=== PATIENT | male | born 1960 | race Caucasian/White ===

== ENCOUNTER 2023-12-15 07:56 | Inpatient (IN) | payer BC, OTHER ==
[~2023-12-15] VITALS: Ht 185.4 cm; Wt 98.6 kg
--- NOTE | 2023-12-15 08:35 | ED.PDOC ---
History of Present Illness(SKN HPI Comments This is a 62-year-old male who comes into the ED with chief complain of wounds. He has a past medical history relevant for type 2 diabetes, gout, hyperlipidemia, hypertension, spinal stenosis, alcohol abuse. Patient stated that since last week he started noticing lesions on his hands, wrists and forearms. He denies any significant itchiness, any insect bite, he stated that is the 1st time they appeared, he only stated that they are painful on any range of motion of his raised elicits pain. Denies any chills, fevers, lightheadedness, dizziness, warmness. Patient was also noted to be anxious, had tremors, stated that his last alcoholic drink was yesterday at 7:00 p.m.. Chief Complaint: Wound Check Time Seen by MD: 08:02 Primary Care Provider: ZAC History of Present Illness: Nurses Notes Allergies: Coded Allergies: NO KNOWN ALLERGIES (Unverified , 12/15/23) Mode of Arrival: Ambulatory Severity: Mild Timing: Weeks Duration: Since onset Past Medical History PAST MEDICAL HISTORY: DM, Gout, High Lipids, HTN Social History Smoker: Non-Smoker Alcohol: Heavy Drugs: Marijuana Lives In: Home Constitutional: denies: chills, diaphoresis, fatigue, fever, malaise, sweats, weakness, others EENTM: denies: blurred vision, double vision, ear bleeding, ear discharge, ear drainage, ear pain, ear ringing, eye pain, eye redness, hearing loss, mouth pain, mouth swelling, nasal discharge, nose bleeding, nose congestion, nose pain, photophobia, tearing, throat pain, throat swelling, voice changes, others Respiratory: denies: cough, hemoptysis, orthopnea, SOB at rest, shortness of breath, SOB with excertion, stridor, wheezing, others Cardiovascular: denies: chest pain, dizzy spells, diaphoresis, Dyspnea on exertion, edema, irregular heart beat, left arm pain, lightheadedness, palpitations, PND, syncope, others Gastrointestinal: denies: abdomen distended, abdominal pain, blood streaked bowels, constipated, diarrhea, dysphagia, difficulty swallowing, hematemesis, melena, nausea, poor appetite, poor fluid intake, rectal bleeding, rectal pain, vomiting, others Genitourinary: denies: burning, dysuria, flank pain, frequency, hematuria, incontinence, penile discharge, penile sore, pain, testicle pain, testicle swelling, urgency, others Neurological: reports: tremors; denies: dizziness, fainting, headache, left sided numbness, left sided weakness, numbness, paresthesia, pre-existing deficit, right sided numbness, right sided weakness, seizure, speech problems, tingling, weakness, others Musculoskeletal: denies: back pain, gout, joint pain, joint swelling, muscle pain, muscle stiffness, neck pain, others Integumetry: reports: dryness, laceration, lesions, rash, wounds; denies: bruises, change in color, change in hair/nails, lumps, others Allergic/Immunocompromised: denies: Difficulty Healing, Frequent Infections, Hives, Itching, others Hematologic/Lymphatic: denies: anemia, blood clots, easy bleeding, easy bruising, swollen glands, others Endocrine: denies: excessive hunger, excessive sweating, excessive thirst, excessive urination, flushing, intolerance to cold, intolerance to heat, unexplained weight gain, unexplained weight loss, others Psychiatric: denies: anxiety, bipolar disorder, depression, hopeless, panic disorder, schizophrenia, sleepless, suicidal, others Physical Exam General Appearance: No Apparent Distress, Normal HEENT: Normal ENT Inspection, Pharynx Normal, TMs Normal Neck: Full Range of Motion, Non-Tender, Normal, Normal Inspection Respiratory: Chest Non-Tender, Lungs Clear, No Accessory Muscle Use, No Respiratory Distress, Normal Breath Sounds Cardiovascular: No Edema, No JVD, No Murmur, No Gallop, Normal Peripheral Pulses, Regular Rate/Rhythm Breast Exam: Deferred Gastrointestinal: Distended, Hepatomegaly, Non Tender, No Pulsatile Mass, Normal Bowel Sounds, Soft Genitalia: Deferred Pelvic: Deferred Rectal: Deferred Extremities: No calf tenderness, Normal capillary refill, Normal range of motion, Non-tender, No pedal edema Neurologic: Alert, incident handler II-XII nml as Tested, No Motor Deficits, Normal Affect, Normal Mood, No Sensory Deficits Cerebellar Function: Tremor Reflexes: NOT DONE Skin: Dry, Lacerations, Rash, Warm, Wounds Lymphatic: No Adenopathy Was a procedure done? Was a procedure done?: No Differential Diagnosis (INTG) Differential Diagnosis: Abrasion, Cellulitis, Insect Envenomation, Puncture Wound Differential Diagnosis: Atopic dermatitis X-Ray, Labs, Meds, VS Vital Signs Date Time Temp Pulse Resp B/P (MAP) Pulse Ox O2 Delivery O2 Flow Rate FiO2 12/15/23 08:50 96 12 92 Room Air* 0 21 12/15/23 08:50 96 12 139/85 (103) 92 12/15/23 08:09 98.3 93 18 141/77 (98) 99 Lab Test 12/15/23 08:30 Range/Units White Blood Count 16.8 H 4.4-10.8 10^3/uL Red Blood Count 4.53 4.5-5.90 10^6/uL Hemoglobin 15.4 13.5-17.5 g/dL Hematocrit 44.6 41.0-53.0 % Mean Corpuscular Volume 98.4 80.0-100.0 fL Mean Corpuscular Hemoglobin 34.0 H 28.0-32.0 pg Mean Corpuscular Hemoglobin Concent 34.5 32.0-36.0 g/dL Red Cell Distribution Width 14.0 11.8-14.3 % Platelet Count 233 140-450 10^3/uL Mean Platelet Volume 7.1 6.9-10.8 fL Neutrophils (%) (Auto) 37.0-80.0 % Lymphocytes (%) (Auto) 10.0-50.0 % Monocytes (%) (Auto) 0.0-12.0 % Basophils (%) (Auto) 0.0-2.0 % Neutrophils # (Auto) 1.6-8.6 10 ^3/uL Lymphocytes # (Auto) 0.4-5.4 10 ^3/uL Monocytes # (Auto) 0-1.3 10 ^3/uL Differential Total Cells Counted 100.0 100 Neutrophils % (Manual) 79 37.0-80.0 Band Neutrophils % (Manual) 4 Lymphocytes % (Manual) 4 L 10.0-50.0 Monocytes % (Manual) 10 0-12 Eosinophils % (Manual) 3 0-7 Basophils % (Manual) 0 0.0-2.0 Metamyelocytes % (manual) 0 Myelocytes % (Manual) 0 Promyelocytes % (Manual) 0 Blast Cells % (Manual) 0 Reactive Lymphocytes 0 Platelet Estimate Adequate Sodium Level 131 L 136-145 mmol/L Potassium Level 3.1 L 3.5-5.1 mmol/L Chloride Level 93 L 98-107 mmol/L Carbon Dioxide Level 28 20-31 mmol/L Anion Gap 10 5-15 Blood Urea Nitrogen 18 9-23 mg/dL Creatinine 0.97 0.700-1.30 mg/dL Glomerular Filtration Rate Calc 88 >90 mL/min BUN/Creatinine Ratio 18.6 10.0-20.0 Serum Glucose 168 H 74-106 mg/dL Calcium Level 10.2 8.7-10.4 mg/dL Current Medications Medications (Trade) Dose Ordered Sig/Mayra Route Start Time Stop Time Status Last Admin Ketorolac Tromethamine (Toradol Injection) 60 mg ONCE ONCE IM 12/15/23 08:30 12/15/23 08:31 DC 12/15/23 08:57 On my initial examination, patient appeared in no distress, he was only complaining of [id number] pain on his wounds on his back, we will order CBC, BNP, UA, we will also administer Toradol IM. We will continue to reassess. On reassessment, [place] [address], bands were at four, patient has had good is fluctuating between 90s 100s, we will prescribe IV fluids, Zosyn IV, vancomycin IV, we will order blood culture, urine culture, lactic acid. We will put patient for admission given sirs, likely sepsis. Images Reviewed?: Images reviewed and evaluated by me Time of 1ST Reevaluation: 08:24 Reevaluation 1ST: Unchanged Time of 2ND Reevaluation: 10:00 Reevaluation 2ND: Unchanged Patient Education/Counseling: Diagnosis, Treatment Family Education/Counseling: No Family Present Departure 1 Departure Time of Disposition: 10:59 Impression: Primary Impression: Cellulitis Additional Impressions: UTI (urinary tract infection) Bacteremia Sepsis Type 2 diabetes mellitus Gout Essential hypertension Hyperlipidemia Alcohol withdrawal Disposition: ADMITTED INPATIENT Condition: Guarded Critical Care Note Critical Care Time?: No Stability Stability form required: No Heart Score Heart Score: Heart Score Response (Comments) Value History N/A 0 EKG N/A 0 Age N/A 0 Risk Factors N/A 0 Troponin N/A 0 Total 0 GEORGIANA GREGORY RESIDENT Dec 15, 2023 08:35
[2023-12-15 08:50] VITALS: PULSE 96; RESP 12; O2SAT 92
[2023-12-15 08:51] LABS: Hematocrit 44.6 % (41.0-53.0); Hemoglobin 15.4 g/dL (13.5-17.5); Mean Corpuscular Hgb Conc. 34.5 g/dL (32.0-36.0); Mean Corpuscular Volume 98.4 fL (80.0-100.0); Platelet Count (auto) 233 10^3/uL (140-450); Red Blood Cells 4.53 10^6/uL (4.5-5.90); White Blood Cell 16.8 10^3/uL (4.4-10.8)
[2023-12-15 08:55] LABS: Basophils % (manual) 0 (0.0-2.0); Blast Cells 0; Metamyelocytes % 0; Myelocytes % 0; Promyelocytes % 0; Reactive Lymphocytes 0
[2023-12-15 08:57] LABS: Chloride 93 mmol/L (98-107); Potassium 3.1 mmol/L (3.5-5.1); Sodium 131 mmol/L (136-145)
[2023-12-15] MEDS: KETOROLAC TROMETH 60MG/2ML VIAL IM ONE (08:57)
[2023-12-15 08:58] LABS: Anion Gap 10 (5-15); Calcium 10.2 mg/dL (8.7-10.4); Carbon Dioxide 28 mmol/L (20-31)
[2023-12-15 09:03] LABS: BUN/Creatinine Ratio 18.6 (10.0-20.0); Blood Urea Nitrogen 18 mg/dL (9-23); Glucose 168 mg/dL (74-106)
[2023-12-15] MEDS ORDERED: cefTRIAXone 1GM/50ML D5W 50 ML IV ONE (10:15)
[2023-12-15] MEDS ORDERED: VANCOMYCIN PER PHARMACY 0 MG IV SCH ×2 (10:15→13:15)
[2023-12-15 10:18] LABS: Band Neutrophils % (manual) 4; Eosinophils % (manual) 3 (0-7); Lymphocytes % (manual) 4 (10.0-50.0); Monocytes % (manual) 10 (0-12); Platelet Estimate Adequate
[2023-12-15] MEDS: SODIUM CHLORIDE 0.9% 1,000 ML IV ONE ×3 (11:17→14:37)
[2023-12-15] MEDS: POTASSIUM CHL 20 Meq TABLET PO ONE (11:17)
[2023-12-15] MEDS: PIPERACILLIN-TAZOB 3.375GM 100 ML IV ONE (11:18)
[2023-12-15 12:00] VITALS: PULSE 89; RESP 15; O2SAT 93
[2023-12-15] MEDS ORDERED: ALLO300T2 PO (13:05)
[2023-12-15] MEDS ORDERED: EMPA1TAB3 PO (13:05)
[2023-12-15] MEDS ORDERED: METF-370 PO (13:05)
[2023-12-15] MEDS: VANCOMYCIN 1GM/200ML PREMIX 200 ML IV SCH ×2 (13:05→21:13)
[2023-12-15] MEDS ORDERED: AMIT75TA62 PO (13:05)
[2023-12-15] MEDS ORDERED: SEMA7TAB2 PO (13:05)
[2023-12-15] MEDS ORDERED: DEXTROSE (50%) 50ML SYRG IV PRN (13:15)
[2023-12-15] MEDS ORDERED: ACETAMINOPHEN 325 MG TAB PO PRN (13:30)
[2023-12-15] MEDS ORDERED: DOCUSATE SOD 100 MG CAP PO PRN (13:30)
[2023-12-15] MEDS ORDERED: ONDANSETRON HCL 4 MG/2 ML VIAL IV PRN (13:30)
[2023-12-15] MEDS ORDERED: MORPHINE SULFATE INJ 2 MG/ml SYRG IV PRN (13:30)
[2023-12-15] MEDS ORDERED: SODIUM CHLORIDE 0.9% 1,000 ML IV ONE ×2 (13:30)
[2023-12-15] MEDS ORDERED: NITROGLYCERIN 0.4 MG SL TAB SL PRN (13:30)
--- NOTE | 2023-12-15 13:42 | DVHHP2 ---
History of Present Illness Reason for Visit: Wound check History of Present Illness Denver Marshall is a 63-year-old male with past medical history of hypertension, hyperlipidemia, GOUT, ETOH dependance, and diabetes, who comes in to have blisters on his bilateral hands/wrists evaluated. Patient states the blisters started just over a week ago and have grown significantly larger over the last 3 days. Patient denies any recent bug or spider bits. Cardiovascular: HTN, hyperipidemia Musculoskeletal: Chronic low back pain, Other (spinal stenosis) Rheumatologic: Gout Endocrine: Diabetes Past Surgical History: Other (left leg) Smoke: No ALCOHOL: heavy Drugs: None Lives: with Family Domestic Violence: Neg Review of Systems Constitutional: No: Fever, Chills, Sweats, Weakness, Malaise, Other Eyes: No: Pain, Vision change, Conjunctivae inflammation, Eyelid inflammation, Other, Redness ENT: No: Ear pain, Ear discharge, Nose pain, Nose discharge, Nose congestion, Mouth pain, Mouth swelling, Throat pain, Throat swelling, Other Respiratory: No: Cough, Dry, Shortness of breath, SOB with excertion, Wheezing, Hemoptysis, Pleuritic Pain, Sputum, Wheezing, Other Cardiovascular: No: Chest Pain, Palpitations, Orthopnea, Paroxysmal Noc. Dyspnea, Edema, Lt Headedness, Other Gastrointestinal: No: Nausea, Vomiting, Abdominal Pain, Diarrhea, Constipation, Melena, Hematochezia, Other Genitourinary: No Dysuria, No Frequency, No Incontinence, No Hematuria, No Retention, No Other Musculoskeletal: No: other, neck pain, shoulder pain, arm pain, back pain, hand pain, leg pain, foot pain Skin: Lesions (bilateral hand blisters); No: Rash, Jaundice, Bruising, Other Neurological: No: Weakness, Numbness, Incoordination, Change in speech, Confusion, Seizures, Other Allergies: Coded Allergies: NO KNOWN ALLERGIES (Unverified , 12/15/23) Medications Current Medications Medications Dose Ordered Sig/Mayra Route Start Time Stop Time Status Last Admin Dose Admin Vancomycin HCl 0 ml @ 0 mls/hr UD IV 12/15/23 10:15 Patient Own Medication 1 tab DAILY PO 12/16/23 10:00 UNV Patient Own Medication 1 tab DAILY PO 12/16/23 10:00 UNV Amitriptyline HCl 75 mg HS PO 12/15/23 22:00 UNV Diagnostic Test (Pha) 1 strip ACHS 12/15/23 17:00 UNV Insulin Human Regular HS SC 12/15/23 22:00 UNV Insulin Human Regular AC SC 12/15/23 17:00 UNV Dextrose 50 ml UD PRN IV 12/15/23 13:15 UNV Vancomycin HCl 0 ml @ 0 mls/hr UD IV 12/15/23 13:15 UNV Piperacillin Sod/ Tazobactam Sod 100 ml @ 25 mls/hr Q8HR IV 12/15/23 14:00 UNV Exam Vital Signs Vital Signs Date Time Temp Pulse Resp B/P (MAP) Pulse Ox O2 Delivery O2 Flow Rate FiO2 12/15/23 08:50 96 12 92 Room Air* 0 21 12/15/23 08:50 139/85 (103) 12/15/23 08:09 98.3 General Appearance: Alert, Oriented X3, Cooperative, mild distress HEENT: Atraumatic, PERRLA, Mucous membr. moist/pink Respiratory: Clear to auscultation, Normal air movement Cardiovascular: Regular rate, Normal S1, Normal S2 Abdominal: Normal bowel sounds, Soft, No tenderness Extremities: No clubbing, No cyanosis, No edema, Normal pulses Skin: No breakdown (blisters to bilateral hands and wrists. right forearm has red streaking from wrist blister to the upper arm) Neuro: Normal gait, Normal speech, Strength at 5/5 X4 ext Psych/Mental Status: Mental status NL, Mood NL Labs/Xrays Labs Test 12/15/23 11:30 12/15/23 08:30 Range/Units Lactic Acid Level 1.2 0.4-2.0 mmol/L White Blood Count 16.8 H 4.4-10.8 10^3/uL Red Blood Count 4.53 4.5-5.90 10^6/uL Hemoglobin 15.4 13.5-17.5 g/dL Hematocrit 44.6 41.0-53.0 % Mean Corpuscular Volume 98.4 80.0-100.0 fL Mean Corpuscular Hemoglobin 34.0 H 28.0-32.0 pg Mean Corpuscular Hemoglobin Concent 34.5 32.0-36.0 g/dL Red Cell Distribution Width 14.0 11.8-14.3 % Platelet Count 233 140-450 10^3/uL Mean Platelet Volume 7.1 6.9-10.8 fL Neutrophils (%) (Auto) 37.0-80.0 % Lymphocytes (%) (Auto) 10.0-50.0 % Monocytes (%) (Auto) 0.0-12.0 % Basophils (%) (Auto) 0.0-2.0 % Neutrophils # (Auto) 1.6-8.6 10 ^3/uL Lymphocytes # (Auto) 0.4-5.4 10 ^3/uL Monocytes # (Auto) 0-1.3 10 ^3/uL Differential Total Cells Counted 100.0 100 Neutrophils % (Manual) 79 37.0-80.0 Band Neutrophils % (Manual) 4 Lymphocytes % (Manual) 4 L 10.0-50.0 Monocytes % (Manual) 10 0-12 Eosinophils % (Manual) 3 0-7 Basophils % (Manual) 0 0.0-2.0 Metamyelocytes % (manual) 0 Myelocytes % (Manual) 0 Promyelocytes % (Manual) 0 Blast Cells % (Manual) 0 Reactive Lymphocytes 0 Platelet Estimate Adequate Sodium Level 131 L 136-145 mmol/L Potassium Level 3.1 L 3.5-5.1 mmol/L Chloride Level 93 L 98-107 mmol/L Carbon Dioxide Level 28 20-31 mmol/L Anion Gap 10 5-15 Blood Urea Nitrogen 18 9-23 mg/dL Creatinine 0.97 0.700-1.30 mg/dL Glomerular Filtration Rate Calc 88 >90 mL/min BUN/Creatinine Ratio 18.6 10.0-20.0 Serum Glucose 168 H 74-106 mg/dL Calcium Level 10.2 8.7-10.4 mg/dL TECHNIQUE: CT of the right upper extremity FINDINGS: The alignment is normal. Moderate degenerative changes of the shoulder joint. There is no fracture, dislocation, or focal osseous lesion. Mild soft-tissue inflammatory changes in the region of the right axilla /chest wall. Multiple prominent lymph nodes in the right axillary region and right lateral chest measuring up to 1.2 cm. The imaged portions of the mediastinum and rightleft hemithorax are normal. IMPRESSION: No acute fracture or dislocation. Nonspecific mild soft-tissue inflammatory changes in the region of the right axilla /right lateral chest wall with associated reactive adenopathy. 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 Procedure Category Date Status Time (Nf) Allopurinol PHA 12/16/23 Logged 10:00 (Nf) Empagliflozin PHA 12/16/23 Logged (Jardiance) 10:00 Amitriptyline Hcl PHA 12/15/23 Logged Tablet (Elavil Tablet) 22:00 Sodium Chloride 0.9% PHA 12/15/23 Logged 13:15 Sodium Chloride 0.9% PHA 12/15/23 Logged 13:15 Glucose Blood PHA 12/15/23 Logged (Accu-Chek Comfort 17:00 Insulin R (Human) PHA 12/15/23 Logged (Insulin R) 22:00 Insulin R (Human) PHA 12/15/23 Logged (Insulin R) 17:00 Dextrose 50% Syringe PHA 12/15/23 Logged 13:15 Lactic Acid W/ Reflex LAB 12/15/23 Logged Order 13:07 Vancomycin Per PHA 12/15/23 Logged Pharmacy 13:15 Piperacillin-Tazob PHA 12/15/23 Logged 3.375gm (Zosyn 3.375g 14:00 * Wound Consult CONS 12/15/23 Transmitted Wound Culture W/ Gs FREDERIC 12/15/23 Logged 13:07 * Infectious [place]- CONS 12/15/23 Transmitted Ashutosh Matson 13:07 Admit ADMIT 12/15/23 Verified 13:29 Code Status CODE 12/15/23 Verified 13:29 2 Gm Sodium Diet DIET 12/15/23 Verified Lunch Hydrocodone-Acet PHA 12/15/23 Verified 5/325mg Tab (Tarpley 13:30 Ondansetron Hcl PHA 12/15/23 Verified (Zofran) 13:30 Docusate Sodium PHA 12/15/23 Verified Capsule (Colace 13:30 Complete Blood Count LAB 12/16/23 Verified 04:00 Comprehensive LAB 12/16/23 Verified Metabolic Panel 04:00 Condition: Serious ABDIFATAH 12/15/23 Verified 13:29 Acetaminophen Tablet PHA 12/15/23 Verified (Tylenol Tablet) 13:30 Nitroglycerin [facility] 12/15/23 Verified Sublingual (Ntrostat 13:30 Morphine Sulfate [facility] 12/15/23 Verified Injection 13:30 Stat Ekg For Chest [facility] 12/15/23 Verified Pain 13:29 Notify Md Of Changes [facility] 12/15/23 Verified From Base 13:29 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
--- NOTE | 2023-12-15 14:41 | DVH ---
INDICATION: 63 years old, Male; RIGHT ARM INFECTION. COMPARISON: None TECHNIQUE: CT of the right upper extremity was performed without contrast. Volume transverse images w ere obtained and reconstructed in multiple planes using bone and soft tissue algorithms. CONTRAST: None Radiation Dose Information: CTDI volume is 25.9 mGy. Dose-length product is 2160 mGy*cm FINDINGS: The alignment is normal. Moderate degenerative changes of the shoulder joint. There is no fracture, dislocation, or focal osseous lesion. Mild soft-tissue inflammatory changes in the region of the right axilla /chest wall. Multiple prominent lymph nodes in the right axillary region and right lateral chest measuring up to 1 .2 cm. The imaged portions of the mediastinum and rightleft hemithorax are normal. IMPRESSION: No acute fracture or dislocation. Nonspecific mild soft-tissue inflammatory changes in the region of the right axilla /right lateral ch est wall with associated reactive adenopathy. All CT scans at this medical facility are performed using dose modulation techniques as appropriate t o a performed exam including the following: Automated exposure control was utilized; adjustment of th e MA and/or KV according to patient size; and use of iterative reconstruction technique.
[2023-12-15 16:26] VITALS: TEMP 98.2
[2023-12-15] MEDS: ACCU-CHEK COMFORT CURVE STRIP VI SCH (16:49)
[2023-12-15 16:59] VITALS: BP 141/69; PULSE 86; RESP 16; TEMP 98.2; O2SAT 96
[2023-12-15] MEDS: PIPERACILLIN-TAZOB 3.375GM 100 ML IV SCH (18:28)
[2023-12-15] MEDS: InsuLIN REG 1unit/0.01ml Soln (100units/ml) SC SCH ×2 (18:40→22:56)
[2023-12-15] MEDS: HYDROcodone-ACET 5/325MG TAB PO PRN (18:46)
[2023-12-15 20:00] VITALS: PULSE 55
[2023-12-15 21:00] VITALS: BP 129/72; PULSE 90; RESP 20; TEMP 98.8; O2SAT 92
[2023-12-15] MEDS: AMITRIPTYLINE HCL 25 MG TAB PO SCH (22:26)
[2023-12-16] VITALS (8 sets, daily range): BP systolic 109–167; BP diastolic 56–89; PULSE 61–85; RESP 17–18; TEMP 97.9–99.3; O2SAT 93–96
[2023-12-16 06:00] LABS: Basophils # (auto) 0 10 ^3/uL (0-0.2); Basophils % (auto) 0.4 % (0.0-2.0); Eosinophils # (auto) 0.3 10 ^3/uL (0-0.8); Eosinophils % (auto) 2.8 % (0.0-7.0); Hemoglobin 13.9 g/dL (13.5-17.5); Lymphocytes # (auto) 0.7 10 ^3/uL (0.4-5.4); Lymphocytes % (auto) 6.8 % (10.0-50.0); Mean Corpuscular Hemoglobin 34.4 pg (28.0-32.0); Mean Corpuscular Hgb Conc. 34.9 g/dL (32.0-36.0); Mean Corpuscular Volume 98.6 fL (80.0-100.0); Monocytes # (auto) 1.2 10 ^3/uL (0-1.3); Monocytes % (auto) 10.9 % (0.0-12.0); Neutrophils # (auto) 8.5 10 ^3/uL (1.6-8.6); Neutrophils % (auto) 79.1 % (37.0-80.0); Platelet Count (auto) 220 10^3/uL (140-450); Red Blood Cells 4.05 10^6/uL (4.5-5.90); Red Cell Distribution Width 14.1 % (11.8-14.3); White Blood Cell 10.7 10^3/uL (4.4-10.8)
[2023-12-16 06:14] LABS: Alanine Aminotransferase 75 U/L (7-40); Albumin 4.1 g/dL (3.2-4.8); Alkaline Phosphatase 158 U/L (46-116); Anion Gap 9 (5-15); Aspartate Aminotransferase 44 U/L (13-40); BUN/Creatinine Ratio 21.6 (10.0-20.0); Bilirubin, Total 1.5 mg/dL (0.2-1.0); Blood Urea Nitrogen 16 mg/dL (9-23); Calcium 9.5 mg/dL (8.7-10.4); Carbon Dioxide 27 mmol/L (20-31); Chloride 101 mmol/L (98-107); Glucose 122 mg/dL (74-106); Potassium 3.2 mmol/L (3.5-5.1); Sodium 137 mmol/L (136-145); Total Protein 6.2 g/dL (5.7-8.2)
[2023-12-16] MEDS: EMPAGLIFLOZIN 25 MG PO SCH (10:00)
[2023-12-16] MEDS: ALLOPURINOL 100 MG TAB PO SCH (10:00)
[2023-12-16] MEDS: ITRACONAZOLE 100 MG CAP PO SCH (12:44)
[2023-12-16 12:49] LABS: Hepatitis A Ab IgM Negative
[2023-12-16 12:50] LABS: Hepatitis B Core IgM Negative; Hepatitis C Antibody Negative (Negative)
[2023-12-16 13:47] LABS: Hepatitis B Surface Antigen Negative (Negative)
--- NOTE | 2023-12-16 13:57 | DVHPN2 ---
Subjective History of Present Illness Denver Marshall is a 63-year-old male with past medical history of hypertension, hyperlipidemia, GOUT, ETOH dependance, and diabetes, who comes in to have blisters on his bilateral hands/wrists evaluated. Patient states the blisters started just over a week ago and have grown significantly larger over the last 3 days. Patient denies any recent bug or spider bites. update - 12/15 - wounds are still present, new blisters are developing. 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 He has already been seen by wound care, pending ID eval. Reviewed: H&P Changes from previous H/P or p: No Changes Musculoskeletal: No other, No neck pain, No shoulder pain, No arm pain, No back pain, No hand pain, No leg pain, No foot pain Skin: No Rash; Lesions (bilateral hand blisters); No Jaundice, No Bruising, No Other Objective Vitals Vital Signs Date Time Temp Pulse Resp B/P (MAP) Pulse Ox O2 Delivery O2 Flow Rate FiO2 12/16/23 09:19 98.1 68 18 142/81 (101) 95 98.1 12/15/23 20:00 Room Air* 0 21 Intake/Output Intake and Output 12/16/23 07:00 Intake Total 2300 ml Balance 2300 ml Intake Oral 600 ml IV Total 1700 ml # Voids 1 Exam GEN: Healthy appearing, well-developed, NAD. HEENT: NC/AT; MMM. CV: RRR, no m/r/g. LUNGS: CTAB, no w/r/c. ABD: Soft, NT/ND, NBS, no masses or organomegaly. EXT: skin Warm, well perfused. no rashes. No clubbing, cyanosis, or edema. B ilateral hand eschars and wounds covered in dressing, center if wounds are dark, no surrounding erythema, no drainage/purulent material. NEURO: Ambulating with no limitations. No focal deficits. Medications Current Medications Medications Dose Ordered Sig/Mayra Route Start Time Stop Time Status Last Admin Dose Admin Allopurinol 300 mg DAILY PO 12/16/23 10:00 12/16/23 10:00 300 MG Patient Own Medication 1 tab DAILY PO 12/16/23 10:00 Amitriptyline HCl 75 mg HS PO 12/15/23 22:00 12/15/23 22:26 75 MG Diagnostic Test (Pha) 1 strip ACHS 12/15/23 17:00 12/16/23 11:30 1 STRIP Insulin Human Regular HS SC 12/15/23 22:00 12/15/23 22:56 2 UNITS Insulin Human Regular AC SC 12/15/23 17:00 12/16/23 12:21 2 UNITS Dextrose 50 ml UD PRN IV 12/15/23 13:15 Piperacillin Sod/ Tazobactam Sod 100 ml @ 25 mls/hr Q6HR IV 12/15/23 18:00 12/16/23 12:22 25 MLS/HR Acetaminophen/ Hydrocodone Bitart 1 tab Q4HP PRN PO 12/15/23 13:30 12/16/23 05:21 1 TAB Ondansetron HCl 4 mg Q4HP PRN IV 12/15/23 13:30 Docusate Sodium 100 mg BIDPRN PRN PO 12/15/23 13:30 Acetaminophen 650 mg Q6HP PRN PO 12/15/23 13:30 Nitroglycerin 0.4 mg Q5MINP PRN SL 12/15/23 13:30 Morphine Sulfate 2 mg Q30M PRN IV 12/15/23 13:30 Itraconazole 200 mg Q12HR PO 12/16/23 10:00 12/16/23 12:44 200 MG Doxycycline Monohydrate 100 mg Q12HR PO 12/16/23 22:00 Laboratory Results Laboratory Tests 12/16/23 05:14 Chemistry Test 12/16/23 05:14 Albumin 4.1 g/dL (3.2-4.8) Calcium Level 9.5 mg/dL (8.7-10.4) Total Protein 6.2 g/dL (5.7-8.2) LFT Test 12/16/23 05:14 Alanine Aminotransferase (ALT) 75 U/L (7-40) H Alkaline Phosphatase 158 U/L (46-116) H Aspartate Amino Transferase (AST) 44 U/L (13-40) H Total Bilirubin 1.5 mg/dL (0.2-1.0) H Microbiology Microbiology Date/Time Source Procedure Growth Status 12/15/23 11:30 Blood Blood Culture - Preliminary NO GROWTH AFTER 24 HOURS OF INCUBATION. Resulted Labs and/or images reviewed: Labs reviewed by me, Image(s) reviewed by me Assessment/Plan Assessment/Plan update - 12/15 - wounds are still present, new blisters are developing. 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 He has already been seen by wound care, pending ID eval. Leukocytosis Skin wounds Eschar bilateral upper extremity Right axillary lymphadenopathy -Patient presenting with subacute wounds in bilateral upper extremities. 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 He has dogs, no cats. No cat scratch. - he has eschars to start as blisters. 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 Cx draining wounds. 7 days vanc/zosyn, PO at dc, 30 days itraconzale w ID outpt f/u 4-6 week. Wound Care consulted Transaminitis ALP elevated Hyperbilirubinemia -Patient does not have any right upper quadrant pain -On labs LFTs are elevated with high ALP and elevated T bili. We will get RUQ ultrasound, and hep panel History of gout -patient asking if his chronic gout tophi can be drained while inpatient - continue , indomethacin; hold colchicine (unclear if this could be cause of ulcers) Consult Podiatry - eval for inpt drainage of tophi in feet,. HTN - BP low but now improving, paged by RN for high BP - will add prn labetalol - will hold off BP meds as patient was low earlier. if remains sBP>160 will then add procardia XL - pt on atenolol although unlikely this to affect BP in any signi. manner. Plan discussed with: Patient My Orders Orders - SUZETTE BURNS MD Procedure Category Date Status Time Abdomen Limited US 12/16/23 Logged 11:35 Acute Hepatitis Panel LAB 12/16/23 In Process 11:35 Doxycycline Tablet PHA 12/16/23 In Process (Vibramycin Tablet) 22:00 Cleanse Wound With ABDIFATAH 12/16/23 In Process Wound Clean 10:05 * Dietary Consult CONS 12/16/23 Transmitted 13:04 *Podiatry Consult CONS 12/16/23 Transmitted Julian(D[facility]) 12:57 Date of Service: Dec 16, 2023 Billing Provider: SUZETTE BURNS MD Common Visit Codes: [id number] INP/OBS CARE(HIGH) SUZETTE BURNS MD Dec 16, 2023 13:57
--- NOTE | 2023-12-16 14:56 | DVH ---
ULTRASOUND ABDOMEN LIMITED INDICATION: Abdominal pain.. TECHNIQUE: Multiple real-time sonographic images of the abdomen were obtained. COMPARISON: None FINDINGS: The visualized liver parenchyma appears diffusely echogenic. . The liver measures 20.5 cm. No dis crete hepatic lesion or intrahepatic biliary ductal dilatation is identified. There is no evidence of gallstones, gallbladder wall thickening or pericholecystic fluid. The common biliary duct is not dilated. The right kidney measures 13.1 cm length. There is a 1.2 cm calculus in the midpole of the right ki dney. There is no hydronephrosis. Pancreas is obscured by bowel gas. IMPRESSION: 1. Hepatomegaly with hepatic steatosis. 2. 1.2 cm nonobstructive right midpole renal calculus. HS:Y
[2023-12-16] MEDS ORDERED: LABETALOL HCL 20 MG/4 ML VL IV PRN (17:00)
--- NOTE | 2023-12-16 20:17 | DVHINCON2 ---
Date of service: Dec 15, 2023 Family History: FH: lung cancer G8 MOTHER G8 FATHER Allergies: Coded Allergies: NO KNOWN ALLERGIES (Unverified , 12/15/23) Home Meds Reported Medications Metformin Hydrochloride (Metformin Hcl) 500 Mg Tab, 1 TAB PO BID 12/15/23 Allopurinol (Allopurinol) 300 Mg Tab, 1 TAB PO DAILY 12/15/23 Amitriptyline HCl (Amitriptyline Hydrochlori) 75 Mg Tab, 1 TAB PO 12/15/23 Empagliflozin (Jardiance) 25 Mg Tab, 1 TAB PO DAILY 12/15/23 Semaglutide (Rybelsus) 7 Mg Tab, 1 TAB PO DAILY 12/15/23 Current Medications Current Medications Medications (Trade) Dose Ordered Sig/Mayra Route PRN Reason Start Time Stop Time Status Last Admin Allopurinol (Zyloprim Tablet) 300 mg DAILY PO 12/16/23 10:00 12/16/23 10:00 Patient Own Medication 1 tab DAILY PO 12/16/23 10:00 Amitriptyline HCl (Elavil Tablet) 75 mg HS PO 12/15/23 22:00 12/15/23 22:26 Insulin Human Regular (InsuLIN R) HS SC 12/15/23 22:00 12/15/23 22:56 Vancomycin HCl 200 ml @ 200 mls/hr Q8H IV 12/15/23 21:00 12/16/23 11:36 DC 12/16/23 05:28 Itraconazole (Sporanox) 200 mg Q12HR PO 12/16/23 10:00 12/16/23 12:44 Doxycycline Monohydrate (Vibramycin Tablet) 100 mg Q12HR PO 12/16/23 22:00 Labetalol HCl (Labetalol HCl) 10 mg Q2HPRN PRN IV SBP>170 12/16/23 17:00 Indomethacin (Indocin Capsule) 25 mg TID PO 12/16/23 22:00 Famotidine (Pepcid Tablet) 20 mg Q12HR PO 12/16/23 22:00 Vital Signs Vital Signs Date Time Temp Pulse Resp B/P (MAP) Pulse Ox O2 Delivery O2 Flow Rate FiO2 12/16/23 17:00 98.9 83 17 167/77 (107) 96 98.9 12/16/23 07:30 Room Air* 0 21 Labs/Diagnostic Data Labs Test 12/16/23 16:50 12/16/23 05:14 12/15/23 14:30 12/15/23 08:30 Range/Units POC Glucose 193 H 70-106 mg/dl White Blood Count 10.7 # 4.4-10.8 10^3/uL Red Blood Count 4.05 L 4.5-5.90 10^6/uL Hemoglobin 13.9 13.5-17.5 g/dL Hematocrit 40.0 #L 41.0-53.0 % Mean Corpuscular Volume 98.6 80.0-100.0 fL Mean Corpuscular Hemoglobin 34.4 H 28.0-32.0 pg Mean Corpuscular Hemoglobin Concent 34.9 32.0-36.0 g/dL Red Cell Distribution Width 14.1 11.8-14.3 % Platelet Count 220 140-450 10^3/uL Mean Platelet Volume 7.0 6.9-10.8 fL Neutrophils (%) (Auto) 79.1 37.0-80.0 % Lymphocytes (%) (Auto) 6.8 L 10.0-50.0 % Monocytes (%) (Auto) 10.9 0.0-12.0 % Eosinophils (%) (Auto) 2.8 0.0-7.0 % Basophils (%) (Auto) 0.4 0.0-2.0 % Neutrophils # (Auto) 8.5 1.6-8.6 10 ^3/uL Lymphocytes # (Auto) 0.7 0.4-5.4 10 ^3/uL Monocytes # (Auto) 1.2 0-1.3 10 ^3/uL Eosinophils # (Auto) 0.3 0-0.8 10 ^3/uL Basophils # (Auto) 0 0-0.2 10 ^3/uL Nucleated Red Blood Cells 0.0 % Sodium Level 137 # 136-145 mmol/L Potassium Level 3.2 L 3.5-5.1 mmol/L Chloride Level 101 98-107 mmol/L Carbon Dioxide Level 27 20-31 mmol/L Anion Gap 9 5-15 Blood Urea Nitrogen 16 9-23 mg/dL Creatinine 0.74 0.700-1.30 mg/dL Glomerular Filtration Rate Calc 102 >90 mL/min BUN/Creatinine Ratio 21.6 H 10.0-20.0 Serum Glucose 122 H 74-106 mg/dL Calcium Level 9.5 8.7-10.4 mg/dL Total Bilirubin 1.5 H 0.2-1.0 mg/dL Aspartate Amino Transferase (AST) 44 H 13-40 U/L Alanine Aminotransferase (ALT) 75 H 7-40 U/L Alkaline Phosphatase 158 H 46-116 U/L Total Protein 6.2 5.7-8.2 g/dL Albumin 4.1 3.2-4.8 g/dL Hepatitis A IgM Antibody Negative Hepatitis B Surface Antigen Negative Negative Hepatitis B Core IgM Antibody Negative Hepatitis C Antibody Negative Negative Lactic Acid Level 0.8 0.4-2.0 mmol/L Differential Total Cells Counted 100.0 100 Neutrophils % (Manual) 79 37.0-80.0 Band Neutrophils % (Manual) 4 Lymphocytes % (Manual) 4 L 10.0-50.0 Monocytes % (Manual) 10 0-12 Eosinophils % (Manual) 3 0-7 Basophils % (Manual) 0 0.0-2.0 Metamyelocytes % (manual) 0 Myelocytes % (Manual) 0 Promyelocytes % (Manual) 0 Blast Cells % (Manual) 0 Reactive Lymphocytes 0 Platelet Estimate Adequate Microbiology Date/Time Source Procedure Growth Status 12/15/23 11:30 Blood Blood Culture - Preliminary NO GROWTH AFTER 24 HOURS OF INCUBATION. Resulted Problems(with codes): (1) Gout (2) Essential hypertension (3) Bacteremia (4) Cellulitis (5) Hyperlipidemia (6) UTI (urinary tract infection) (7) Alcohol withdrawal (8) Type 2 diabetes mellitus (9) Sepsis Plan/Recommendation ASSESSMENT AND PLAN: ID Problem List: - Cellulitis with blisters - Hypertension - Hyperlipidemia - Gout - Diabetes - Alcohol use - sporotrichosis Assessment: This is a 60-year-old male with a past medical history of hypertension, hyperlipidemia, gout, alcohol use, and diabetes, presenting with blisters on his hands and wrists, and an extension of cellulitis. Blisters on the right hand and wrist started a week ago and have grown and spread. The patient denies recent bug bites, spider bites, animal bites, fever, or chills. He reports insomnia, which prompted a visit to the hospital. On admission, the following laboratory results were noted: - Temperature: 98.3 F - Pulse oximetry: 92% on room air - Respiration rate: 12 - Blood pressure: 139/85 - Lactic acid: 1.2 WBC: 16.8 - Hemoglobin: 15.4 - Platelet count: 233 - Creatinine: 0.[address] scan of the right upper extremities shows no acute fracture or dislocation, but nonspecific mild soft tissue inflammatory changes in the region of the right axilla/right lateral chest wall associated with reactive adenopathy. The patient has noted blood cultures and is currently being treated with vancomycin and Zosyn (piperacillin/tazobactam) for bacterial cellulitis. Plan: - Continue vancomycin and Zosyn for now. - Recommend bacterial culture of patient's draining wounds. - Recommend fungal culture as the patient possibly has sporotrichosis with nodular lymphadenitis. - Continue at least seven days of bacterial cellulitis treatment with vancomycin and Zosyn, oral therapy on discharge - Sporotrichosis can take several weeks to several months to treat. Send the patient home with a 30-day supply of itraconazole and have the patient follow up in four to six weeks. Isolation Precautions: - Standard Assessment and plan discussed with the patient as written above. Plan is subject to change pending incorporation of new incoming information/diagnostics. Updates may be added as an addendum at the bottom (or top) of this note. Thank you for the interesting consult. ID will continue to follow. Please contact Infectious Disease for any questions or concerns. Dr. Bryan Matson [facility] History: The patient's chart and medications were reviewed in detail. The patient was seen and examined. Tr Marshall is a 60-year-old male with a past medical history of hypertension, hyperlipidemia, gout, alcohol use, and diabetes. Patient presents with blisters on his hands and wrists, with an extension of cellulitis noted on the right hand and arm. Review of Systems: A complete 10-system review of systems was completed and negative except as noted in the HPI or here. - CONSTITUTIONAL: Denies weight loss, fever, and chills. - HEENT: Denies changes in vision and hearing. - RESPIRATORY: Denies SOB and cough. - CV: Denies palpitations and CP. - GI: Denies abdominal pain, nausea, vomiting, and diarrhea. - : Denies dysuria and urinary frequency. - MSK: Denies myalgia and joint pain. - SKIN: Denies rash and pruritus. - NEUROLOGICAL: Denies headache and syncope. - PSYCHIATRIC: Denies recent changes in mood. Denies anxiety and depression. Past Medical History: - Hypertension - Hyperlipidemia - Gout - Diabetes - Alcohol use Past Surgical History: No pertinent surgical history reported. Home Medications: - None specified in the transcript. Allergies: None reported. Family History: none relevant Social History: - Socioeconomic History: - Marital status: - Number of children: Not on file - Years of education and highest education level: Not on file - Tobacco Use: Never - Smokeless tobacco: Never - Vaping Use: Never Used - Alcohol use: Heavy use reported - Drug use: Never - Sexual activity: Not Currently Objective: Vital Signs on Arrival: - Temperature: 98.3 F BP: 139/85 - Pulse: Not mentioned - Resp: 12 - SpO2: 92% on room air Most Recent Vital Signs: - Not mentioned in the transcript. Admission Weight: - Not mentioned in the transcript. Physical Exam: - General: NAD - Neck: Supple. No masses. - HEENT: PERRL. Normal lids and conjunctiva. Moist mucous membranes. Oropharynx without lesions, exudates or excessive erythema. Normal appearance of the external aspects of the nose and ears. - Heart: Regular rhythm, normal rate. No murmur. No lower extremity edema. - Lungs: Normal respiratory effort. Clear to auscultation bilaterally. No wh eezes. No crackles. - Abdomen: Soft. Non-tender. Non-distended. No masses or abdominal hernia. - Msk: No digital cyanosis. Normal strength and tone in all 4 limbs - Skin: Warm and dry, no rashes. Noted blisters and cellulitis on the right hand extending to the wrist and upper arm. - Neuro: Alert. No facial droop or slurred speech. Extra-ocular movements intact. Sensation intact to soft touch in all 4 limbs. - Psych: Appropriate mood. Full affect. Oriented to person, place, time, and situation. - Lines: Peripheral IV Line in place. Diagnostic Studies: Available diagnostic studies were reviewed personally. Significant relevant results and findings are outlined below or addressed in the Assessment and Plan above. Plan discussed with: Patient BRYAN MATSON MD Dec 16, 2023 20:17
--- NOTE | 2023-12-16 21:22 | DVHPN2 ---
Consult Progress Note Date Seen: Dec 16, 2023 Subjective Patient reports: Feels better (blisters on hands are improving, with less drainage and salitis is less severe. Still tenderness on inner wrist) Objective vital signs Vital Sign Date Time Temp Pulse Resp B/P (MAP) Pulse Ox O2 Delivery O2 Flow Rate FiO2 12/16/23 21:00 99.3 85 18 165/89 (114) 93 99.3 12/16/23 07:30 Room Air* 0 21 Total Intake and Output 12/15/23 12/15/23 12/16/23 15:00 23:00 07:00 Intake Total 1300 ml 400 ml 600 ml Balance 1300 ml 400 ml 600 ml medications Current Medications Medications Dose Ordered Sig/Mayra Route Start Time Stop Time Status Last Admin Dose Admin Allopurinol 300 mg DAILY PO 12/16/23 10:00 12/16/23 10:00 300 MG Patient Own Medication 1 tab DAILY PO 12/16/23 10:00 Amitriptyline HCl 75 mg HS PO 12/15/23 22:00 12/15/23 22:26 75 MG Diagnostic Test (Pha) 1 strip ACHS 12/15/23 17:00 12/16/23 17:14 1 STRIP Insulin Human Regular HS SC 12/15/23 22:00 12/15/23 22:56 2 UNITS Insulin Human Regular AC SC 12/15/23 17:00 12/16/23 17:43 3 UNITS Dextrose 50 ml UD PRN IV 12/15/23 13:15 Piperacillin Sod/ Tazobactam Sod 100 ml @ 25 mls/hr Q6HR IV 12/15/23 18:00 12/16/23 17:42 25 MLS/HR Acetaminophen/ Hydrocodone Bitart 1 tab Q4HP PRN PO 12/15/23 13:30 12/16/23 14:26 1 TAB Ondansetron HCl 4 mg Q4HP PRN IV 12/15/23 13:30 Docusate Sodium 100 mg BIDPRN PRN PO 12/15/23 13:30 Acetaminophen 650 mg Q6HP PRN PO 12/15/23 13:30 Nitroglycerin 0.4 mg Q5MINP PRN SL 12/15/23 13:30 Morphine Sulfate 2 mg Q30M PRN IV 12/15/23 13:30 Itraconazole 200 mg Q12HR PO 12/16/23 10:00 11/7/24 12:44 200 MG Doxycycline Monohydrate 100 mg Q12HR PO 12/16/23 22:00 Labetalol HCl 10 mg Q2HPRN PRN IV 12/16/23 17:00 Indomethacin 25 mg TID PO 12/16/23 22:00 Famotidine 20 mg Q12HR PO 12/16/23 22:00 Physical Exam: - General: NAD - Neck: Supple. No masses. - HEENT: PERRL. Normal lids and conjunctiva. Moist mucous membranes. Oropharynx without lesions, exudates or excessive erythema. Normal appearance of the external aspects of the nose and ears. - Heart: Regular rhythm, normal rate. No murmur. No lower extremity edema. - Lungs: Normal respiratory effort. Clear to auscultation bilaterally. No wheezes. No crackles. - Abdomen: Soft. Non-tender. Non-distended. No masses or abdominal hernia. - Msk: No digital cyanosis. Normal strength and tone in all 4 limbs - Skin: Warm and dry, no rashes. Noted blisters and cellulitis on the right hand extending to the wrist and upper arm. - Neuro: Alert. No facial droop or slurred speech. Extra-ocular movements intact. Sensation intact to soft touch in all 4 limbs. - Psych: Appropriate mood. Full affect. Oriented to person, place, time, and situation. laboratory and microbiology Laboratory Tests 12/16/23 05:14 Test 12/16/23 05:14 Range/Units Serum Glucose 122 H 74-106 mg/dL Problem List/Assessment/Plan Problems(with codes): (1) Gout (2) Essential hypertension (3) Bacteremia (4) Cellulitis (5) Hyperlipidemia (6) UTI (urinary tract infection) (7) Alcohol withdrawal (8) Type 2 diabetes mellitus (9) Sepsis Problem List/Assessment/Plan ASSESSMENT AND PLAN: ID Problem List: - Cellulitis with blisters - Hypertension - Hyperlipidemia - Gout - Diabetes - Alcohol use - sporotrichosis Assessment: This is a 60-year-old male with a past medical history of hypertension, hyperlipidemia, gout, alcohol use, and diabetes, presenting with blisters on his hands and wrists, and an extension of cellulitis. Blisters on the right hand and wrist started a week ago and have grown and spread. The patient denies recent bug bites, spider bites, animal bites, fever, or chills. He reports insomnia, which prompted a visit to the hospital. On admission, the following laboratory results were noted: - Temperature: 98.3 F - Pulse oximetry: 92% on room air - Respiration rate: 12 - Blood pressure: 139/85 - Lactic acid: 1.2 WBC: 16.8 - Hemoglobin: 15.4 - Platelet count: 233 - Creatinine: 0.[address] scan of the right upper extremities shows no acute fracture or dislocation, but nonspecific mild soft tissue inflammatory changes in the region of the right axilla/right lateral chest wall associated with reactive adenopathy. The patient has noted blood cultures and is currently being treated with vancomycin and Zosyn (piperacillin/tazobactam) for bacterial cellulitis. Plan: - Continue vancomycin and Zosyn for now. - Recommend bacterial culture of patient's draining wounds. - Recommend fungal culture as the patient possibly has sporotrichosis with nodular lymphadenitis. - Continue at least seven days of bacterial cellulitis treatment with vancomycin and Zosyn, oral therapy on discharge - Sporotrichosis can take several weeks to several months to treat. Send the patient home with a 30-day supply of itraconazole and have the patient follow up in four to six weeks. Isolation Precautions: - Standard Assessment and plan discussed with the patient as written above. Plan is subject to change pending incorporation of new incoming information/diagnostics. Updates may be added as an addendum at the bottom (or top) of this note. Thank you for the interesting consult. ID will continue to follow. Please contact Infectious Disease for any questions or concerns. Dr. Bryan Matson [facility] Plan discussed with: BRYAN Horner MD Dec 16, 2023 21:22
[2023-12-16] MEDS: DOXYCYCLINE 100 MG TAB/CAP PO SCH (21:50)
[2023-12-16] MEDS: FAMOTIDINE 20 MG TAB PO SCH (21:51)
[2023-12-16] MEDS: INDOMETHACIN 25 MG CAP PO SCH (21:57)
[2023-12-17] VITALS (8 sets, daily range): BP systolic 137–166; BP diastolic 78–89; PULSE 63–80; RESP 17–19; TEMP 97.5–98.7; O2SAT 90–95
--- NOTE | 2023-12-17 16:00 | DVHPN2 ---
Consult Progress Note Date Seen: Dec 17, 2023 Subjective Patient reports: Feels better (cellulitis improving) Objective vital signs Vital Sign Date Time Temp Pulse Resp B/P (MAP) Pulse Ox O2 Delivery O2 Flow Rate FiO2 12/17/23 13:05 97.5 67 18 137/81 (99) 95 97.5 12/17/23 08:00 Room Air* 0 21 Total Intake and Output 12/16/23 12/16/23 12/17/23 15:00 23:00 07:00 Intake Total 525 ml 900 ml Output Total 700 ml Balance -175 ml 900 ml medications Current Medications Medications Dose Ordered Sig/Mayra Route Start Time Stop Time Status Last Admin Dose Admin Allopurinol 300 mg DAILY PO 12/16/23 10:00 12/17/23 10:26 300 MG Patient Own Medication 1 tab DAILY PO 12/16/23 10:00 Amitriptyline HCl 75 mg HS PO 12/15/23 22:00 12/16/23 21:50 75 MG Diagnostic Test (Pha) 1 strip ACHS 12/15/23 17:00 12/17/23 11:14 1 STRIP Insulin Human Regular HS SC 12/15/23 22:00 12/16/23 22:27 3 UNITS Insulin Human Regular AC SC 12/15/23 17:00 12/17/23 11:24 3 UNITS Dextrose 50 ml UD PRN IV 12/15/23 13:15 Piperacillin Sod/ Tazobactam Sod 100 ml @ 25 mls/hr Q6HR IV 12/15/23 18:00 12/17/23 11:25 25 MLS/HR Acetaminophen/ Hydrocodone Bitart 1 tab Q4HP PRN PO 12/15/23 13:30 12/17/23 14:52 1 TAB Ondansetron HCl 4 mg Q4HP PRN IV 12/15/23 13:30 Docusate Sodium 100 mg BIDPRN PRN PO 12/15/23 13:30 Acetaminophen 650 mg Q6HP PRN PO 12/15/23 13:30 Nitroglycerin 0.4 mg Q5MINP PRN SL 12/15/23 13:30 Morphine Sulfate 2 mg Q30M PRN IV 12/15/23 13:30 Itraconazole 200 mg Q12HR PO 12/16/23 10:00 12/17/23 10:26 200 MG Doxycycline Monohydrate 100 mg Q12HR PO 12/16/23 22:00 12/17/23 10:26 100 MG Labetalol HCl 10 mg Q2HPRN PRN IV 12/16/23 17:00 Indomethacin 25 mg TID PO 12/16/23 22:00 12/17/23 14:52 25 MG Famotidine 20 mg Q12HR PO 12/16/23 22:00 12/17/23 10:26 20 MG Physical Exam: - General: NAD - Neck: Supple. No masses. - HEENT: PERRL. Normal lids and conjunctiva. Moist mucous membranes. Oropharynx without lesions, exudates or excessive erythema. Normal appearance of the external aspects of the nose and ears. - Heart: Regular rhythm, normal rate. No murmur. No lower extremity edema. - Lungs: Normal respiratory effort. Clear to auscultation bilaterally. No wheezes. No crackles. - Abdomen: Soft. Non-tender. Non-distended. No masses or abdominal hernia. - Msk: No digital cyanosis. Normal strength and tone in all 4 limbs - Skin: Warm and dry, no rashes. Noted blisters and cellulitis on the right hand extending to the wrist and upper arm. - Neuro: Alert. No facial droop or slurred speech. Extra-ocular movements intact. Sensation intact to soft touch in all 4 limbs. - Psych: Appropriate mood. Full affect. Oriented to person, place, time, and situation. laboratory and microbiology laboratory and microbiology Laboratory Tests 12/16/23 05:14 Test 12/16/23 05:14 Range/Units Serum Glucose 122 H 74-106 mg/dL Problem List/Assessment/Plan Problem List/Assessment/Plan ASSESSMENT AND PLAN: ID Problem List: - Cellulitis with blisters - Hypertension - Hyperlipidemia - Gout - Diabetes - Alcohol use - sporotrichosis Assessment: This is a 60-year-old male with a past medical history of hypertension, hyperlipidemia, gout, alcohol use, and diabetes, presenting with blisters on his hands and wrists, and an extension of cellulitis. Blisters on the right hand and wrist started a week ago and have grown and spread. The patient denies recent bug bites, spider bites, animal bites, fever, or chills. He reports insomnia, which prompted a visit to the hospital. On admission, the following laboratory results were noted: - Temperature: 98.3 F - Pulse oximetry: 92% on room air - Respiration rate: 12 - Blood pressure: 139/85 - Lactic acid: 1.2 WBC: 16.8 - Hemoglobin: 15.4 - Platelet count: 233 - Creatinine: 0.[address] scan of the right upper extremities shows no acute fracture or dislocation, but nonspecific mild soft tissue inflammatory changes in the region of the right axilla/right lateral chest wall associated with reactive adenopathy. The patient has noted blood cultures and is currently being treated with vancomycin and Zosyn (piperacillin/tazobactam) for bacterial cellulitis. Plan: - Continue vancomycin and Zosyn for now. - Recommend bacterial culture of patient's draining wounds. - Recommend fungal culture as the patient possibly has sporotrichosis with nodular lymphadenitis. - Continue at least seven days of bacterial cellulitis treatment with vancomycin and Zosyn, oral therapy on discharge. - Sporotrichosis can take several weeks to several months to treat. Send the patient home with a 30-day supply of itraconazole and have the patient follow up in four to six weeks with ID, potentially needs several months of antifungal therapy. Isolation Precautions: - Standard Assessment and plan discussed with the patient as written above. Plan is subject to change pending incorporation of new incoming information/diagnostics. Updates may be added as an addendum at the bottom (or top) of this note. Thank you for the interesting consult. ID will continue to follow. Please contact Infectious Disease for any questions or concerns. Dr. Bryan Matson [facility] Plan discussed with: Patient BRYAN MATSON MD Dec 17, 2023 16:00
--- NOTE | 2023-12-17 19:13 | DVHPN2 ---
Subjective History of Present Illness Denver Marshall is a 63-year-old male with past medical history of hypertension, hyperlipidemia, GOUT, ETOH dependance, and diabetes, who comes in to have blisters on his bilateral hands/wrists evaluated. Patient states the blisters started just over a week ago and have grown significantly larger over the last 3 days. Patient denies any recent bug or spider bites. update - 12/15 - wounds are still present, new blisters are developing. 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 He has already been seen by wound care, pending ID eval. - 12/16 - wounds appearing stable. mild improvement. ID following. no febrile episodes, vitals appearing stable. will need more days treatment for complicated case. Reviewed: H&P Changes from previous H/P or p: No Changes General: Per HPI Musculoskeletal: No other, No neck pain, No shoulder pain, No arm pain, No back pain, No hand pain, No leg pain, No foot pain Skin: No Rash; Lesions (bilateral hand blisters); No Jaundice, No Bruising, No Other Objective Vitals Vital Signs Date Time Temp Pulse Resp B/P (MAP) Pulse Ox O2 Delivery O2 Flow Rate FiO2 12/17/23 17:09 98.7 71 19 143/80 (101) 91 98.7 12/17/23 08:00 Room Air* 0 21 Intake/Output Intake and Output 12/17/23 07:00 Intake Total 1425 ml Output Total 700 ml Balance 725 ml Intake Oral 1425 ml Output Urine Total 700 ml # Voids 2 # Bowel Movements 1 Exam GEN: Healthy appearing, well-developed, NAD. HEENT: NC/AT; MMM. CV: RRR, no m/r/g. LUNGS: CTAB, no w/r/c. ABD: Soft, NT/ND, NBS, no masses or organomegaly. EXT: skin Warm, well perfused. no rashes. No clubbing, cyanosis, or edema. B ilateral hand eschars and wounds covered in dressing, center if wounds are dark, no surrounding erythema, no drainage/purulent material. NEURO: Ambulating with no limitations. No focal deficits. Medications Current Medications Medications Dose Ordered Sig/Mayra Route Start Time Stop Time Status Last Admin Dose Admin Allopurinol 300 mg DAILY PO 12/16/23 10:00 12/17/23 10:26 300 MG Patient Own Medication 1 tab DAILY PO 12/16/23 10:00 Amitriptyline HCl 75 mg HS PO 12/15/23 22:00 12/16/23 21:50 75 MG Diagnostic Test (Pha) 1 strip ACHS 12/15/23 17:00 12/17/23 17:05 1 STRIP Insulin Human Regular HS SC 12/15/23 22:00 12/16/23 22:27 3 UNITS Insulin Human Regular AC SC 12/15/23 17:00 12/17/23 11:24 3 UNITS Dextrose 50 ml UD PRN IV 12/15/23 13:15 Piperacillin Sod/ Tazobactam Sod 100 ml @ 25 mls/hr Q6HR IV 12/15/23 18:00 12/17/23 17:15 25 MLS/HR Acetaminophen/ Hydrocodone Bitart 1 tab Q4HP PRN PO 12/15/23 13:30 12/17/23 14:52 1 TAB Ondansetron HCl 4 mg Q4HP PRN IV 12/15/23 13:30 Docusate Sodium 100 mg BIDPRN PRN PO 12/15/23 13:30 Acetaminophen 650 mg Q6HP PRN PO 12/15/23 13:30 Nitroglycerin 0.4 mg Q5MINP PRN SL 12/15/23 13:30 Morphine Sulfate 2 mg Q30M PRN IV 12/15/23 13:30 Itraconazole 200 mg Q12HR PO 12/16/23 10:00 12/17/23 10:26 200 MG Doxycycline Monohydrate 100 mg Q12HR PO 12/16/23 22:00 12/17/23 10:26 100 MG Labetalol HCl 10 mg Q2HPRN PRN IV 12/16/23 17:00 Indomethacin 25 mg TID PO 12/16/23 22:00 12/17/23 14:52 25 MG Famotidine 20 mg Q12HR PO 12/16/23 22:00 12/17/23 10:26 20 MG Laboratory Results Laboratory Tests 12/16/23 05:14 Microbiology Microbiology Date/Time Source Procedure Growth Status 12/15/23 11:30 Blood Blood Culture - Preliminary NO GROWTH AFTER 48 HOURS OF INCUBATION. Resulted 12/15/23 10:22 Hand Gram Stain - Final Resulted 12/15/23 10:22 Hand Wound Culture - Preliminary Resulted Assessment/Plan Assessment/Plan update - 12/16 - wounds appearing stable. mild improvement. ID following. no febrile episodes, vitals appearing stable. will need more days treatment for complicated case. tentative plan: if course shows continued improvmeent . plan for completion of IV Abx by 12/21/23, then do clinda outpt 7 days more and itraconazole 30 days total outpt. ID to f/u 4-6wk outpt. Leukocytosis Skin wounds Eschar bilateral upper extremity Right axillary lymphadenopathy -Patient presenting with subacute wounds in bilateral upper extremities. 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 He has dogs, no cats. No cat scratch. - he has eschars to start as blisters. 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 Cx draining wounds. 7 days vanc/zosyn, [facility], 30 days itraconzale w ID outpt f/u 4-6 week. Wound Care consulted Transaminitis ALP elevated Hyperbilirubinemia -Patient does not have any right upper quadrant pain -On labs LFTs are elevated with high ALP and elevated T bili. We will get RUQ ultrasound, and hep panel History of gout -patient asking if his chronic gout tophi can be drained while inpatient - continue , indomethacin; hold colchicine (unclear if this could be cause of ulcers) Consult Podiatry - eval for inpt drainage of tophi in feet,. HTN - BP low but now improving, paged by RN for high BP - will add prn labetalol - will hold off BP meds as patient was low earlier. if remains sBP>160 will then add procardia XL - pt on atenolol although unlikely this to affect BP in any signi. manner. diet - regular dvt ppx - pt OOB gi ppx - rufus diet med/surg Plan discussed with: Patient My Orders Orders - SUZETTE BURNS MD Procedure Category Date Status Time Dietary NOTICE 12/17/23 Transmitted Recommendations 16:08 Date of Service: Dec 17, 2023 Billing Provider: SUZETTE BURNS MD Common Visit Codes: [id number] INP/OBS CARE(HIGH) SUZETTE BURNS MD Dec 17, 2023 19:13
[2023-12-18 01:00] VITALS: BP 151/89; PULSE 69; RESP 19; TEMP 97.6; O2SAT 94
[2023-12-18 05:00] VITALS: BP 142/68; PULSE 65; RESP 19; TEMP 97.5; O2SAT 93
[2023-12-18 08:00] VITALS: PULSE 44
[2023-12-18 08:18] VITALS: BP 151/98; PULSE 66; RESP 16; TEMP 97.7; O2SAT 93
--- NOTE | 2023-12-18 11:48 | DVHPN2 ---
Consult Progress Note Date Seen: Dec 18, 2023 Subjective Patient reports: Feels better (mild improvement in cellulitis) Objective vital signs Vital Sign Date Time Temp Pulse Resp B/P (MAP) Pulse Ox O2 Delivery O2 Flow Rate FiO2 12/18/23 08:18 97.7 66 16 151/98 (115) 93 97.7 12/18/23 08:00 Room Air* 0 21 Total Intake and Output 12/17/23 12/17/23 12/18/23 15:00 23:00 07:00 Intake Total 100 ml 900 ml 200 ml Balance 100 ml 900 ml 200 ml medications Current Medications Medications Dose Ordered Sig/Mayra Route Start Time Stop Time Status Last Admin Dose Admin Allopurinol 300 mg DAILY PO 12/16/23 10:00 12/18/23 09:36 300 MG Patient Own Medication 1 tab DAILY PO 12/16/23 10:00 Amitriptyline HCl 75 mg HS PO 12/15/23 22:00 12/17/23 21:22 75 MG Diagnostic Test (Pha) 1 strip ACHS 12/15/23 17:00 12/18/23 11:20 1 STRIP Insulin Human Regular HS SC 12/15/23 22:00 12/17/23 21:40 3 UNITS Insulin Human Regular AC SC 12/15/23 17:00 12/18/23 11:24 3 UNITS Dextrose 50 ml UD PRN IV 12/15/23 13:15 Piperacillin Sod/ Tazobactam Sod 100 ml @ 25 mls/hr Q6HR IV 12/15/23 18:00 12/18/23 11:29 25 MLS/HR Acetaminophen/ Hydrocodone Bitart 1 tab Q4HP PRN PO 12/15/23 13:30 12/18/23 09:45 1 TAB Ondansetron HCl 4 mg Q4HP PRN IV 12/15/23 13:30 Docusate Sodium 100 mg BIDPRN PRN PO 12/15/23 13:30 Acetaminophen 650 mg Q6HP PRN PO 12/15/23 13:30 Nitroglycerin 0.4 mg Q5MINP PRN SL 12/15/23 13:30 Morphine Sulfate 2 mg Q30M PRN IV 12/15/23 13:30 Itraconazole 200 mg Q12HR PO 12/16/23 10:00 12/18/23 09:36 200 MG Doxycycline Monohydrate 100 mg Q12HR PO 12/16/23 22:00 12/18/23 09:36 100 MG Labetalol HCl 10 mg Q2HPRN PRN IV 12/16/23 17:00 Indomethacin 25 mg TID PO 12/16/23 22:00 12/18/23 06:36 25 MG Famotidine 20 mg Q12HR PO 12/16/23 22:00 12/18/23 09:36 20 MG Physical Exam: General: NAD Neck: Supple. No masses. HEENT: PERRL. Normal lids and conjunctiva. Moist mucous membranes. Oropharynx without lesions, exudates, or excessive erythema. Normal appearance of the external aspects of the nose and ears. Heart: Regular rhythm, normal rate. No murmur. No lower extremity edema. Lungs: Normal respiratory effort. Clear to auscultation bilaterally. No wheezes. No crackles. Abdomen: Soft. Non-tender. Non-distended. No masses or abdominal hernia. Msk: No digital cyanosis. Normal strength and tone in all 4 limbs. Skin: Warm and dry, no rashes. Neuro: Alert. No facial droop or slurred speech. Extra-ocular movements intact. Sensation intact to soft touch in all 4 limbs. Psych: Appropriate mood. Full affect. Oriented to person, place, time, and situation. laboratory and microbiology Laboratory Tests 12/16/23 05:14 Test 12/16/23 05:14 Range/Units Serum Glucose 122 H 74-106 mg/dL Problem List/Assessment/Plan Problem List/Assessment/Plan ASSESSMENT AND PLAN: ID Problem List: - Cellulitis with blisters - Hypertension - Hyperlipidemia - Gout - Diabetes - Alcohol use - sporotrichosis Assessment: This is a 60-year-old male with a past medical history of hypertension, hyperlipidemia, gout, alcohol use, and diabetes, presenting with blisters on his hands and wrists, and an extension of cellulitis. Blisters on the right hand and wrist started a week ago and have grown and spread. The patient denies recent bug bites, spider bites, animal bites, fever, or chills. He reports insomnia, which prompted a visit to the hospital. On admission, the following laboratory results were noted: - Temperature: 98.3 F - Pulse oximetry: 92% on room air - Respiration rate: 12 - Blood pressure: 139/85 - Lactic acid: 1.2 WBC: 16.8 - Hemoglobin: 15.4 - Platelet count: 233 - Creatinine: 0.[address] scan of the right upper extremities shows no acute fracture or dislocation, but nonspecific mild soft tissue inflammatory changes in the region of the right axilla/right lateral chest wall associated with reactive adenopathy. The patient has noted blood cultures and is currently being treated with vancomycin and Zosyn (piperacillin/tazobactam) for bacterial cellulitis. Plan: - group A hemolytic strep on wound culture, can switch to Ancef - Recommend bacterial culture of patient's draining wounds. - Recommend fungal culture as the patient possibly has sporotrichosis with nodular lymphadenitis. - Sporotrichosis can take several weeks to several months to treat. Send the patient home with a 30-day supply of itraconazole and have the patient follow up in four to six weeks with ID, potentially needs several months of antifungal therapy. Isolation Precautions: - Standard Assessment and plan discussed with the patient as written above. Plan is subject to change pending incorporation of new incoming information/diagnostics. Updates may be added as an addendum at the bottom (or top) of this note. Thank you for the interesting consult. ID will continue to follow. Please contact Infectious Disease for any questions or concerns. Dr. Bryan Matson [facility] Plan discussed with: Patient Dietary Evaluation Review Comments: 1) Consider CHUN 1 pkt BID for wounds. 2) Continue current plan of care Expected Outcomes/Goals: F/U in 3-5 days BRYAN MATSON MD Dec 18, 2023 11:47
[2023-12-18 11:49] VITALS: BP 146/99; PULSE 65; RESP 17; TEMP 97.7; O2SAT 91
[2023-12-18] MEDS ORDERED: CLIN1CAP70 PO ×2 (12:31→15:33)
[2023-12-18] MEDS ORDERED: ITRA100C3 PO ×2 (12:31→15:33)
[2023-12-18] MEDS ORDERED: INDO-34 PO (12:31)
[2023-12-18] MEDS ORDERED: FAMO-12 PO (12:31)
[2023-12-18] MEDS ORDERED: COLC1CAP PO ×2 (12:32→15:33)
--- NOTE | 2023-12-18 12:38 | DVHDS2 ---
Discharge Summary Date of Admission Dec 15, 2023 at 13:29 Date of Discharge: Dec 18, 2023 Labs/Diagnostic Data: Laboratory Results Test 12/18/23 10:51 12/16/23 05:14 12/15/23 14:30 12/15/23 08:30 POC Glucose 186 mg/dl (70-106) White Blood Count 10.7 10^3/uL (4.4-10.8) Red Blood Count 4.05 10^6/uL (4.5-5.90) Hemoglobin 13.9 g/dL (13.5-17.5) Hematocrit 40.0 % (41.0-53.0) Mean Corpuscular Volume 98.6 fL (80.0-100.0) Mean Corpuscular Hemoglobin 34.4 pg (28.0-32.0) Mean Corpuscular Hemoglobin Concent 34.9 g/dL (32.0-36.0) Red Cell Distribution Width 14.1 % (11.8-14.3) Platelet Count 220 10^3/uL (140-450) Mean Platelet Volume 7.0 fL (6.9-10.8) Neutrophils (%) (Auto) 79.1 % (37.0-80.0) Lymphocytes (%) (Auto) 6.8 % (10.0-50.0) Monocytes (%) (Auto) 10.9 % (0.0-12.0) Eosinophils (%) (Auto) 2.8 % (0.0-7.0) Basophils (%) (Auto) 0.4 % (0.0-2.0) Neutrophils # (Auto) 8.5 10 ^3/uL (1.6-8.6) Lymphocytes # (Auto) 0.7 10 ^3/uL (0.4-5.4) Monocytes # (Auto) 1.2 10 ^3/uL (0-1.3) Eosinophils # (Auto) 0.3 10 ^3/uL (0-0.8) Basophils # (Auto) 0 10 ^3/uL (0-0.2) Nucleated Red Blood Cells 0.0 % Sodium Level 137 mmol/L (136-145) Potassium Level 3.2 mmol/L (3.5-5.1) Chloride Level 101 mmol/L (98-107) Carbon Dioxide Level 27 mmol/L (20-31) Anion Gap 9 (5-15) Blood Urea Nitrogen 16 mg/dL (9-23) Creatinine 0.74 mg/dL (0.700-1.30) Glomerular Filtration Rate Calc 102 mL/min (>90) BUN/Creatinine Ratio 21.6 (10.0-20.0) Serum Glucose 122 mg/dL (74-106) Calcium Level 9.5 mg/dL (8.7-10.4) Total Bilirubin 1.5 mg/dL (0.2-1.0) Aspartate Amino Transferase (AST) 44 U/L (13-40) Alanine Aminotransferase (ALT) 75 U/L (7-40) Alkaline Phosphatase 158 U/L (46-116) Total Protein 6.2 g/dL (5.7-8.2) Albumin 4.1 g/dL (3.2-4.8) Hepatitis A IgM Antibody Negative Hepatitis B Surface Antigen Negative (Negative) Hepatitis B Core IgM Antibody Negative Hepatitis C Antibody Negative (Negative) Lactic Acid Level 0.8 mmol/L (0.4-2.0) Differential Total Cells Counted 100.0 (100) Neutrophils % (Manual) 79 (37.0-80.0) Band Neutrophils % (Manual) 4 Lymphocytes % (Manual) 4 (10.0-50.0) Monocytes % (Manual) 10 (0-12) Eosinophils % (Manual) 3 (0-7) Basophils % (Manual) 0 (0.0-2.0) Metamyelocytes % (manual) 0 Myelocytes % (Manual) 0 Promyelocytes % (Manual) 0 Blast Cells % (Manual) 0 Reactive Lymphocytes 0 Platelet Estimate Adequate Other Laboratory Tests 12/16/23 05:14 Brief Hx & Hospital Course: Denver Marshall is a 63-year-old male with past medical history of hypertension, hyperlipidemia, GOUT, ETOH dependance, and diabetes, who comes in to have blisters on his bilateral hands/wrists evaluated. Patient states the blisters started just over a week ago and have grown significantly larger over the last 3 days. Patient denies any recent bug or spider bites. Concern of sporotrichosis patient discharged with itraconazole for 30 days, clindamycin. Also discharged with colchicine for gout and indomethacin Condition at Discharge: Good Final Diagnosis/Problems List leukocytosis, eschar, lymphadenopathy, transaminitis, hyperbilirubinemia, gout sporotrichosis? Discharge Disposition: Home Discharge Instruct/Medications Diet: See Comment Diet comment: avoid high purine and red meat Activity: No Restrictions, As Tolerated Follow Up/Referral: id in 4 weeks Medications: itraconazole twice a day for 30 days, clindamycin 3 times a day for 7 days, colchicine, indomethacine 37 Discharge Statement: "Patient was advised to return to the ER or call 911 if any headaches, dizziness, shortness of breath, chest pain, abdominal pain, bleeding, fevers, or worsening of medical condition. Patient was counseled about treatment plan, medications, possible side effects, patientverbalized understanding. All questions were answered to the best of my ability. This discharge took greater then 30 minutes in planning, reviewing documentation, counseling the patient, and discussing with other team members." ASSESSMENT ASSESSMENT Assessment leukocytosis, eschar, lymphadenopathy, transaminitis, hyperbilirubinemia, gout Date of Service: Dec 18, 2023 Billing Provider: GALINDO JOE MD Common Visit Codes: 01108-EFN/OBS DISCH DAY >30min GALINDO JOE MD Dec 18, 2023 12:38
[2023-12-18] MEDS: ceFAZolin 2 GM/D5W50ml 50 ML IV SCH (14:00)
[2023-12-18 15:26] VITALS: PULSE 71; RESP 16; TEMP 97.8; O2SAT 96
[2023-12-18] MEDS ORDERED: FAMO-161 PO (15:33)
[2023-12-18] MEDS ORDERED: INDO-35 PO (15:33)
--- NOTE | 2023-12-19 19:07 | DVHPN2 ---
Consult Progress Note Date Seen: Dec 19, 2023 Subjective Patient reports: Feels better (arm edema resolved) Objective vital signs Vital Sign Date Time Temp Pulse Resp B/P (MAP) Pulse Ox O2 Delivery O2 Flow Rate FiO2 12/18/23 15:26 97.8 71 16 96 97.8 12/18/23 11:49 146/99 (115) 12/18/23 08:00 Room Air* 0 21 Total Intake and Output 12/18/23 12/18/23 12/19/23 15:00 23:00 07:00 Intake Total 100 ml 100 ml Output Total 200 ml Balance 100 ml -100 ml medications Physical Exam: General: NAD Neck: Supple. No masses. HEENT: PERRL. Normal lids and conjunctiva. Moist mucous membranes. Oropharynx without lesions, exudates, or excessive erythema. Normal appearance of the external aspects of the nose and ears. Heart: Regular rhythm, normal rate. No murmur. No lower extremity edema. Lungs: Normal respiratory effort. Clear to auscultation bilaterally. No wheezes. No crackles. Abdomen: Soft. Non-tender. Non-distended. No masses or abdominal hernia. Msk: No digital cyanosis. Normal strength and tone in all 4 limbs. Skin: Warm and dry, no rashes. Neuro: Alert. No facial droop or slurred speech. Extra-ocular movements intact. Sensation intact to soft touch in all 4 limbs. Psych: Appropriate mood. Full affect. Oriented to person, place, time, and situation. laboratory and microbiology Laboratory Tests 12/16/23 05:14 Test 12/16/23 05:14 Range/Units Serum Glucose 122 H 74-106 mg/dL Problem List/Assessment/Plan Problem List/Assessment/Plan ASSESSMENT AND PLAN: ID Problem List: - Cellulitis with blisters - Hypertension - Hyperlipidemia - Gout - Diabetes - Alcohol use - sporotrichosis Assessment: This is a 60-year-old male with a past medical history of hypertension, hyperlipidemia, gout, alcohol use, and diabetes, presenting with blisters on his hands and wrists, and an extension of cellulitis. Blisters on the right hand and wrist started a week ago and have grown and spread. The patient denies recent bug bites, spider bites, animal bites, fever, or chills. He reports insomnia, which prompted a visit to the hospital. On admission, the following laboratory results were noted: - Temperature: 98.3 F - Pulse oximetry: 92% on room air - Respiration rate: 12 - Blood pressure: 139/85 - Lactic acid: 1.2 WBC: 16.8 - Hemoglobin: 15.4 - Platelet count: 233 - Creatinine: 0.[address] scan of the right upper extremities shows no acute fracture or dislocation, but nonspecific mild soft tissue inflammatory changes in the region of the right axilla/right lateral chest wall associated with reactive adenopathy. The patient has noted blood cultures and is currently being treated with vancomycin and Zosyn (piperacillin/tazobactam) for bacterial cellulitis. Plan: - group A hemolytic strep on wound culture, can switch to Ancef - Recommend bacterial culture of patient's draining wounds. - Recommend fungal culture as the patient possibly has sporotrichosis with nodular lymphadenitis. - Sporotrichosis can take several weeks to several months to treat. Send the patient home with a 30-day supply of itraconazole and have the patient follow up in four to six weeks with ID, potentially needs several months of antifungal therapy. Isolation Precautions: - Standard Assessment and plan discussed with the patient as written above. Plan is subject to change pending incorporation of new incoming information/diagnostics. Updates may be added as an addendum at the bottom (or top) of this note. Thank you for the interesting consult. ID will continue to follow. Please contact Infectious Disease for any questions or concerns. Dr. Bryan Matson [facility] Plan discussed with: Patient Dietary Evaluation Review Comments: 1) Consider CHUN 1 pkt BID for wounds. 2) Continue current plan of care Expected Outcomes/Goals: F/U in 3-5 days BRYAN MATSON MD Dec 19, 2023 19:07
== END 2023-12-18 17:30 | disposition home or self-care (01) | DRG 872 ==
LOC: ER 07:56 → TELE 13:29 → TELE-CENTR 13:32
PROVIDERS: ADMIT Nurse Practitioner Family; ATTEND Student in an Organized Health Care Education/Training Program
DX: A41.9 Sepsis, unspecified organism (principal); N39.0 Urinary tract infection, site not specified; F10.239 Alcohol dependence with withdrawal, unspecified; L03.113 Cellulitis of right upper limb; E87.6 Hypokalemia; E11.65 Type 2 diabetes mellitus with hyperglycemia; M10.9 Gout, unspecified; R59.0 Localized enlarged lymph nodes; E78.5 Hyperlipidemia, unspecified; Y90.9 Presence of alcohol in blood, level not specified; I10 Essential (primary) hypertension; G89.29 Other chronic pain; M54.50 Low back pain, unspecified; R74.01 Elevation of levels of liver transaminase levels; E80.6 Other disorders of bilirubin metabolism; G47.00 Insomnia, unspecified; B42.9 Sporotrichosis, unspecified; S60.521A Blister (nonthermal) of right hand, initial encounter; X58.XXXA Exposure to other specified factors, initial encounter; Y93.89 Activity, other specified; Y92.89 Other specified places as the place of occurrence of the external cause; Y99.8 Other external cause status; Z80.1 Family history of malignant neoplasm of trachea, bronchus and lung
CPT/HCPCS: 36415; 73200; 76705; 80048; 80053; 80074; 82962; 83605; 85007; 85025; 85027; 87040; 87205; 96365; 96372; 96375; G0378; J1815; J1885; J2543

== ENCOUNTER 2024-12-23 05:14 | Inpatient (IN) | payer BC, OTHER ==
[~2024-12-23] VITALS: Ht 182.9 cm; Wt 92.5 kg
[~2024-12-23 05:14] MED LIST: ALLO300T2 PO; AMIT75TA62 PO; CLIN1CAP70 PO; COLC1CAP PO; EMPA1TAB3 PO; FAMO-161 PO; INDO-35 PO; ITRA100C3 PO; METF-370 PO; SEMA7TAB2 PO
[2024-12-23 07:27] LABS: Hematocrit 41.0 % (41.0-53.0); Hemoglobin 14.2 g/dL (13.5-17.5); Mean Corpuscular Hemoglobin 31.7 pg (28.0-32.0); Mean Corpuscular Volume 91.7 fL (80.0-100.0); Nucleated Red Blood Cells % 0.1 %
[2024-12-23 07:36] LABS: Chloride 101 mmol/L (98-107); Potassium 3.6 mmol/L (3.5-5.1); Sodium 142 mmol/L (136-145)
[2024-12-23 07:37] LABS: Anion Gap 9 (5-15); Calcium 9.8 mg/dL (8.7-10.4); Carbon Dioxide 32 mmol/L (20-31)
[2024-12-23 07:42] LABS: BUN/Creatinine Ratio 12.3 (10.0-20.0); Blood Urea Nitrogen 13 mg/dL (9-23); Glucose 89 mg/dL (74-106)
[2024-12-23] MEDS: ONDANSETRON HCL 4 MG/2 ML VIAL IV ONE (08:52)
[2024-12-23] MEDS: IOHEXOL 300 MG/ML 100ML BOTTLE IJ ONE (08:52)
[2024-12-23] MEDS: ARTIFICIAL TEARS 15ml EACHEYE ONE (08:52)
[2024-12-23] MEDS: MORPHINE SULFATE 4 MG/ML SYR/VIAL IV ONE (08:55)
[2024-12-23] MEDS: SODIUM CHLORIDE 0.9% 1,000 ML IV ONE ×2 (08:55→12:53)
--- NOTE | 2024-12-23 08:56 | DVH ---
Indication: abdominal pain Technique: CT axial images of the abdomen and pelvis are obtained with intravenous contrast. Coronal and sagittal reformats were obtained. Radiation Dose Information: CTDI volume is 10.68 mGy. Dose-length product is 549.22 mGy*cm Comparison: None FINDINGS: Lung bases demonstrate atelectasis. Adrenal glands, spleen unremarkable. Pancreatic head hypodense lesion measuring 2 cm.. No enhancing hepatic lesion. No CT evidence for cholelithiasis. Nonobstructing right renal calculi up to 8 mm. Nonobstructing left renal calculi up to 10 mm. Stomach is partially distended. Small bowel loops are normal in caliber. Moderate volume stool within the colon most pronounced within the cecum and ascending colon. No secondary signs for appendicitis. Abdominal aorta normal in caliber. Atherosclerotic disease. Bladder distended. No free pelvic fluid. No inguinal lymphadenopathy. [id number] bilateral sacroiliac degenerative joint disease. Moderate to advanced lumbar degenerative disc disease most pronounced at L2-3. IMPRESSION: Nonobstructing bilateral renal calculi measuring up to 8 mm on the right and 10 mm on the left. Moderate volume stool in the colon most pronounced within the cecum and ascending colon. Pancreatic head hypodense lesion measuring 2 cm,. Recommend MRI abdomen with and without contrast to further evaluate for cysts, cystic neoplasm, pseudocyst and other etiologies. Atherosclerotic disease. Other findings as described.
--- NOTE | 2024-12-23 09:29 | ED.PDOC ---
History of Present Illness HPI Comments 64-year-old male presents to the ER with a prior medical history who severe stenosis and a treatment plain of abdominal pain. Patient reports on having had bilateral lower abdominal pain we are a ball-like, would come from his abdomen making him have to push into the hernia for the past 1.5 weeks. The hernia is a 10/10 on the pain scale and is preventing the patient from sleeping. Patient's is undergoing workup for his kidneys but has been waiting for insurance at this time. Denies any other symptoms at this time. Denies chills, fever, N/V/D, SOB, CP. No other associated symptoms, modifiers, recent injuries or sick contacts present at this time. Chief Complaint: Abdominal Pain Time Seen by MD: 09:30 Primary Care Provider: ZAC Ordoñez Notes: Nurses Notes, Medications, Allergies Allergies: Coded Allergies: NO KNOWN ALLERGIES (Unverified , 12/15/23) Home Meds Active Scripts Itraconazole (Itraconazole) 100 Mg Cap, 100 MG PO BID for 30 Days, #60 CAP Prov:GALINDO JOE MD 12/18/23 Indomethacin (Indomethacin) 25 Mg Cap, 25 MG PO TID for 10 Days, #30 CAP Prov:GALINDO JOE MD 12/18/23 Famotidine (Pepcid AC) 20 Mg Tab, 20 MG PO BID for 30 Days, #60 TAB Prov:GALINDO JOE MD 12/18/23 Colchicine (Colchicine) 0.6 Mg Cap, 0.6 MG PO DAILY for 30 Days, #30 CAP Prov:GALINDO JOE MD 12/18/23 Clindamycin Hcl (Clindamycin Hcl) 300 Mg Cap, 300 MG PO TID for 7 Days, #21 CAP Prov:GALINDO JOE MD 12/18/23 Reported Medications Metformin Hydrochloride (Metformin Hcl) 500 Mg Tab, 1 TAB PO BID 12/15/23 Allopurinol (Allopurinol) 300 Mg Tab, 1 TAB PO DAILY 12/15/23 Amitriptyline HCl (Amitriptyline Hydrochlori) 75 Mg Tab, 1 TAB PO 12/15/23 Empagliflozin (Jardiance) 25 Mg Tab, 1 TAB PO DAILY 12/15/23 Semaglutide (Rybelsus) 7 Mg Tab, 1 TAB PO DAILY 12/15/23 Information Source: Patient Mode of Arrival: Ambulatory Severity: Moderate Timing: Days Duration: Since onset, Days Prehospital treatment: None Past Medical History Past Medical History (Other): Severe stenosis Surgical History: Denies all surgeries Family History Family History: Reviewed,noncontributory to illness, Unknown Social History Smoker: Non-Smoker Alcohol: Heavy Drugs: Marijuana Lives In: Home Constitutional: denies: chills, diaphoresis, fatigue, fever, malaise, sweats, weakness, others EENTM: denies: blurred vision, double vision, ear bleeding, ear discharge, ear drainage, ear pain, ear ringing, eye pain, eye redness, hearing loss, mouth pain, mouth swelling, nasal discharge, nose bleeding, nose congestion, nose pain, photophobia, tearing, throat pain, throat swelling, voice changes, others Respiratory: denies: cough, hemoptysis, orthopnea, SOB at rest, shortness of breath, SOB with excertion, stridor, wheezing, others Cardiovascular: denies: chest pain, dizzy spells, diaphoresis, Dyspnea on exertion, edema, irregular heart beat, left arm pain, lightheadedness, palpitations, PND, syncope, others Gastrointestinal: reports: abdominal pain; denies: abdomen distended, blood streaked bowels, constipated, diarrhea, dysphagia, difficulty swallowing, hematemesis, melena, nausea, poor appetite, poor fluid intake, rectal bleeding, rectal pain, vomiting, others Genitourinary: denies: burning, dysuria, flank pain, frequency, hematuria, incontinence, penile discharge, penile sore, pain, testicle pain, testicle swelling, urgency, others Neurological: denies: dizziness, fainting, headache, left sided numbness, left sided weakness, numbness, paresthesia, pre-existing deficit, right sided numbness, right sided weakness, seizure, speech problems, tingling, tremors, weakness, others Musculoskeletal: denies: back pain, gout, joint pain, joint swelling, muscle pain, muscle stiffness, neck pain, others Integumetry: denies: bruises, change in color, change in hair/nails, dryness, laceration, lesions, lumps, rash, wounds, others Allergic/Immunocompromised: denies: Difficulty Healing, Frequent Infections, Hives, Itching, others Hematologic/Lymphatic: denies: anemia, blood clots, easy bleeding, easy b ruising, swollen glands, others Endocrine: denies: excessive hunger, excessive sweating, excessive thirst, excessive urination, flushing, intolerance to cold, intolerance to heat, unexplained weight gain, unexplained weight loss, others Psychiatric: denies: anxiety, bipolar disorder, depression, hopeless, panic disorder, schizophrenia, sleepless, suicidal, others All Other Systems: Reviewed and Negative Physical Exam General Appearance: No Apparent Distress, Normal HEENT: Normal ENT Inspection, Pharynx Normal, TMs Normal Neck: Full Range of Motion, Non-Tender, Normal, Normal Inspection Respiratory: Chest Non-Tender, Lungs Clear, No Accessory Muscle Use, No Respiratory Distress, Normal Breath Sounds Cardiovascular: No Edema, No JVD, No Murmur, No Gallop, Normal Peripheral Pulses, Regular Rate/Rhythm Breast Exam: Deferred Gastrointestinal: No Organomegaly, Non Tender, No Pulsatile Mass, Normal Bowel Sounds, Soft Genitalia: Deferred Pelvic: Deferred Rectal: Deferred Extremities: No calf tenderness, Normal capillary refill, Normal inspection, Normal range of motion, Non-tender, No pedal edema Musculoskeletal : Apperance: Normal Neurologic: Alert, doughnut batter mixer II-XII nml as Tested, No Motor Deficits, Normal Affect, Normal Mood, No Sensory Deficits Cerebellar Function: Normal Reflexes: Normal Skin: Dry, Normal Color, Warm Lymphatic: No Adenopathy Was a procedure done? Was a procedure done?: No Differential Dx Considerations may include: Electrolyte abnormality infectious etiology colitis incarcerated hernia, renal colic X-Ray, Labs, Meds, VS Vital Signs Date Time Temp Pulse Resp B/P (MAP) Pulse Ox O2 Delivery O2 Flow Rate FiO2 12/23/24 08:55 76 20 143/85 12/23/24 08:11 89 20 98 Room Air 12/23/24 08:11 97.3 78 20 136/89 (105) 98 97.3 12/23/24 05:15 97.0 101 50 160/105 97 97.0 Lab Test 12/23/24 07:03 Range/Units White Blood Count 9.9 4.4-10.8 10^3/uL Red Blood Count 4.48 L 4.5-5.90 10^6/uL Hemoglobin 14.2 13.5-17.5 g/dL Hematocrit 41.0 41.0-53.0 % Mean Corpuscular Volume 91.7 80.0-100.0 fL Mean Corpuscular Hemoglobin 31.7 28.0-32.0 pg Mean Corpuscular Hemoglobin Concent 34.6 32.0-36.0 g/dL Red Cell Distribution Width 13.9 11.8-14.3 % Platelet Count 280 140-450 10^3/uL Mean Platelet Volume 7.0 6.9-10.8 fL Neutrophils (%) (Auto) 62.5 37.0-80.0 % Lymphocytes (%) (Auto) 27.1 10.0-50.0 % Monocytes (%) (Auto) 8.8 0.0-12.0 % Eosinophils (%) (Auto) 0.9 0.0-7.0 % Basophils (%) (Auto) 0.7 0.0-2.0 % Neutrophils # (Auto) 6.2 1.6-8.6 10 ^3/uL Lymphocytes # (Auto) 2.7 0.4-5.4 10 ^3/uL Monocytes # (Auto) 0.9 0-1.3 10 ^3/uL Eosinophils # (Auto) 0.1 0-0.8 10 ^3/uL Basophils # (Auto) 0.1 0-0.2 10 ^3/uL Nucleated Red Blood Cells 0.1 % Sodium Level 142 136-145 mmol/L Potassium Level 3.6 3.5-5.1 mmol/L Chloride Level 101 98-107 mmol/L Carbon Dioxide Level 32 H 20-31 mmol/L Anion Gap 9 5-15 Blood Urea Nitrogen 13 9-23 mg/dL Creatinine 1.06 0.700-1.30 mg/dL Glomerular Filtration Rate Calc 78 >90 mL/min BUN/Creatinine Ratio 12.3 10.0-20.0 Serum Glucose 89 74-106 mg/dL Calcium Level 9.8 8.7-10.4 mg/dL Current Medications Medications (Trade) Dose Ordered Sig/Mayra Route Start Time Stop Time Status Last Admin Sodium Chloride 1,000 ml @ 1,000 mls/hr Q1H ONCE IV 12/23/24 07:00 12/23/24 07:59 DC 12/23/24 08:55 Morphine Sulfate 4 mg ONCE ONCE IV 12/23/24 07:00 12/23/24 07:01 DC 12/23/24 08:55 Ondansetron HCl (Zofran) 4 mg ONCE ONCE IV 12/23/24 07:00 12/23/24 07:01 DC 12/23/24 08:52 Artificial Tears (Tears Naturale) 1 drop ONCE ONCE EACHEYE 12/23/24 08:45 12/23/24 08:46 DC 12/23/24 08:52 Time of 1ST Reevaluation: 10:00 Reevaluation 1ST: Unchanged Patient Education/Counseling: Diagnosis, Treatment, Prognosis Family Education/Counseling: No Family Present SEPSIS Sepsis Screen Date sepsis recognized/suspect: Dec 23, 2024 Time Sepsis recognized/suspect: 517 Recent Procedure: No On Antibiotic Therapy: No Respiratory Rate >20: No Heart Rate >90: Yes Temp<36 C (96.8 F) or >38.3 C: No SBP <90 or MAP <65 mmHG: No New Acute Mental Status Change: No Is the patient on CPAP, BIPAP,: No Physician Orders Urinalysis (12/23/24 06:51) Ct Ab Pel With Iv Con Only (12/23/24 06:51) Vital Signs Date Time Temp Pulse Resp B/P (MAP) Pulse Ox O2 Delivery O2 Flow Rate FiO2 12/23/24 08:55 76 20 143/85 12/23/24 08:11 89 20 98 Room Air 12/23/24 08:11 97.3 78 20 136/89 (105) 98 97.3 12/23/24 05:15 97.0 101 50 160/105 97 97.0 Laboratory Tests Test 12/23/24 07:03 White Blood Count 9.9 10^3/uL (4.4-10.8) Medications Medications Dose Ordered Sig/Mayra Route Start Time Stop Time Status Last Admin Dose Admin Artificial Tears 1 drop ONCE ONCE EACHEYE 12/23/24 08:45 12/23/24 08:46 DC 12/23/24 08:52 Morphine Sulfate 4 mg ONCE ONCE IV 12/23/24 07:00 12/23/24 07:01 DC 12/23/24 08:55 Ondansetron HCl 4 mg ONCE ONCE IV 12/23/24 07:00 12/23/24 07:01 DC 12/23/24 08:52 Sodium Chloride 1,000 ml @ 1,000 mls/hr Q1H ONCE IV 12/23/24 07:00 12/23/24 07:59 DC 12/23/24 08:55 Departure 1 Departure Time of Disposition: 09:33 (Patient presented with abdominal pain that was c oncerning for possible appendicits, gastritis, cholecystitis, colitis, gastroenteritis, sbo, or orther possible surgical emergency. Data: 1. I ordered and reviewed the result of at least 3 labs including a CBC, BMP, and Urinalysis. 2. I independently interpreted the following tests: CT Abdomen and Pelvis is concerning for pancreatic mass .Risk:This patient has a high risk of morbidity due to further diagnostic testing or treatment and may suffer from an acute abdominal process disorder. Workup reveals pancreatic mass and intractable abdominal pain and patient should be admitted for further workup. and possible expert consultation. ) Impression: Primary Impression: Pancreatic mass Additional Impression: Intractable abdominal pain Disposition: ADMITTED INPATIENT Admit to: Tele Condition: Guarded Critical Care Note Critical Care Time?: Yes Critical care comment: Intractable abdominal pain Authorized and Performed by: Yvan Parikh MD Total critical care time: Approximately 39 minutes Due to a high probability of clinically significant, life threatening det erioration, the patient required my highest level of preparedness to intervene emergently and I personally spent this critical care time directly and personally managing the patient. This critical care time included obtaining a history; examining the patient; pulse oximetry; ordering and review of studies; arranging urgent treatment with development of a management plan; evaluation of patient's response to treatment; frequent reassessment; and, discussions with other providers. This critical care time was performed to assess and manage the high probability of imminent, life-threatening deterioration that could result in multi-organ failure. It was exclusive of separately billable procedures and treating other patients and teaching time. Please see my other sections and the rest of the note for further information on patient assessment and treatment. Stability Stability form required: No I personally scribed for YVAN PARIKH MD ([email or web address]) on 12/23/24 at 09:29. Electronically submitted by Dario Jensen ([email or web address]). YVAN PARIKH MD Dec 23, 2024 09:29
--- NOTE | 2024-12-23 11:28 | DVHHP2 ---
Admitting Diagnosis: Abdominal pain History of Present Illness 64-year-old male presents to the ER with a prior medical history who severe stenosis and a treatment plain of abdominal pain. Patient reports on having had bilateral lower abdominal pain we are a ball-like, would come from his abdomen making him have to push into the hernia for the past 1.5 weeks. The hernia is a 10/10 on the pain scale and is preventing the patient from sleeping. Patient's is undergoing workup for his kidneys but has been waiting for insurance at this time. Denies any other symptoms at this time. Denies chills, fever, N/V/D, SOB, CP. No other associated symptoms, modifiers, recent injuries or sick contacts present at this time. Past Medical History (Other): Severe stenosis Surgical History: Denies all surgeries Family History Family History: Reviewed,noncontributory to illness, Unknown Social History Smoker: Non-Smoker Alcohol: Heavy Drugs: Marijuana Lives In: Home Patient Family History: FH: lung cancer G8 MOTHER G8 FATHER Allergies: Coded Allergies: NO KNOWN ALLERGIES (Unverified , 12/15/23) Home Meds Active Scripts Itraconazole (Itraconazole) 100 Mg Cap, 100 MG PO BID for 30 Days, #60 CAP Prov:GALINDO JOE MD 12/18/23 Indomethacin (Indomethacin) 25 Mg Cap, 25 MG PO TID for 10 Days, #30 CAP Prov:GALINDO JOE MD 12/18/23 Famotidine (Pepcid AC) 20 Mg Tab, 20 MG PO BID for 30 Days, #60 TAB Prov:GALINDO JOE MD 12/18/23 Colchicine (Colchicine) 0.6 Mg Cap, 0.6 MG PO DAILY for 30 Days, #30 CAP Prov:GALINDO JOE MD 12/18/23 Clindamycin Hcl (Clindamycin Hcl) 300 Mg Cap, 300 MG PO TID for 7 Days, #21 CAP Prov:GALINDO JOE MD 12/18/23 Reported Medications Metformin Hydrochloride (Metformin Hcl) 500 Mg Tab, 1 TAB PO BID 12/15/23 Allopurinol (Allopurinol) 300 Mg Tab, 1 TAB PO DAILY 12/15/23 Amitriptyline HCl (Amitriptyline Hydrochlori) 75 Mg Tab, 1 TAB PO 12/15/23 Empagliflozin (Jardiance) 25 Mg Tab, 1 TAB PO DAILY 12/15/23 Semaglutide (Rybelsus) 7 Mg Tab, 1 TAB PO DAILY 12/15/23 Current Medications Current Medications Medications (Trade) Dose Ordered Sig/Mayra Route PRN Reason Start Time Stop Time Status Last Admin Polyethylene Glycol (Miralax 17GM Powder) 17 gm DAILYPRN PRN PO FOR CONSTIPATION 12/23/24 11:30 Tamsulosin HCl (Flomax) 0.4 mg QPM PO 12/23/24 18:00 Famotidine (Pepcid Tablet) 20 mg BID PO 12/23/24 22:00 Patient Own Medication 1 tab DAILY PO 12/24/24 10:00 UNV Patient Own Medication 1 tab DAILY PO 12/24/24 10:00 UNV Patient Own Medication 1 tab DAILY PO 12/24/24 10:00 UNV Diagnostic Test (Pha) (Accu-Chek Comfort Curve T) 1 strip ACHS 12/23/24 11:30 12/23/24 12:00 Insulin Human Regular (InsuLIN R) ACHS SC 12/23/24 11:30 Dextrose 50 ml UD PRN IV Blood Sugar LESS THAN 60 12/23/24 11:30 Sodium Chloride (Saline Lock Ns) 10 ml Q8HR IV 12/23/24 14:00 12/23/24 12:00 Docusate Sodium (Colace Capsule) 100 mg BIDPRN PRN PO FOR CONSTIPATION 12/23/24 11:30 Acetaminophen (Tylenol Tablet) 650 mg Q6HP PRN PO PAIN SCALE 1-3 OR TEMP>100.4 12/23/24 11:30 Acetaminophen/ Hydrocodone Bitart ([place] 5/325MG Tab) 1 tab Q4HP PRN PO MODERATE PAIN (4-6 PAIN SCALE) 12/23/24 11:30 12/23/24 12:03 Hydromorphone HCl (Dilaudid Injection) 0.5 mg Q4HP PRN IV SEVERE PAIN (7-10 PAIN SCALE) 12/23/24 11:30 Ondansetron HCl (Zofran) 4 mg Q4HP PRN IV NAUSEA / VOMITING 12/23/24 11:30 Enoxaparin Sodium (Lovenox) 40 mg DAILY SC 12/24/24 10:00 Vital Signs Vital Signs Date Time Temp Pulse Resp B/P (MAP) Pulse Ox O2 Delivery O2 Flow Rate FiO2 12/23/24 09:26 70 18 143/83 12/23/24 08:11 98 Room Air 12/23/24 08:11 97.3 97.3 Physical Exam Generally-64 year old male, well nourished well developed. Moderate pain HEENT-atraumatic normocephalic Heart-regular rate and rhythm Lungs clear to auscultate Abdomen soft, mild tender lower abdomen, nondistended Musculoskeletal-no edema cyanosis Neuro-AO x3, no focal deficits SEPSIS Sepsis Screen Date sepsis recognized/suspect: Dec 23, 2024 Time Sepsis recognized/suspect: 517 Recent Procedure: No On Antibiotic Therapy: No Respiratory Rate >20: No Heart Rate >90: Yes Temp<36 C (96.8 F) or >38.3 C: No SBP <90 or MAP <65 mmHG: No New Acute Mental Status Change: No Is the patient on CPAP, BIPAP,: No Physician Orders Ct Ab Pel With Iv Con Only (12/23/24 06:51) Mri Abd & Plevis W/Wo Cont (12/23/24 11:23) Polyethylene Glycol 17g Powder (Miralax (12/23/24 11:30) Tamsulosin Hydrochloride (Flomax) (12/23/24 18:00) Sodium Chloride 0.9% (12/23/24 11:30) Regular Diet (12/23/24 Lunch) Famotidine Tablet (Pepcid Tablet) (12/23/24 22:00) (Nf) Allopurinol (12/24/24 10:00) (Nf) Empagliflozin (Jardiance) (12/24/24 10:00) (Nf) Semaglutide (Rybelsus) (12/24/24 10:00) Glucose Blood (Accu-Chek Comfort Curve T (12/23/24 11:30) Insulin R (Human) (Insulin R) (12/23/24 11:30) Dextrose 50% Syringe (12/23/24 11:30) * Urology Consult (12/23/24 11:25) Admit (12/23/24 11:28) Code Status (12/23/24 11:28) Vital Signs .PER UNIT PROTOCOL (12/23/24 11:28) Review Orders With Adm. (12/23/24 11:28) Encourage Activity As Tolerate (12/23/24 11:28) Sodium Chloride Lock (Saline Lock Ns) (12/23/24 14:00) Docusate Sodium Capsule (Colace Capsule) (12/23/24 11:30) Acetaminophen Tablet (Tylenol Tablet) (12/23/24 11:30) Notify Md Of Changes From Base (12/23/24 11:28) Advance Directive (12/23/24 11:) Patient Condition (12/23/24 11:) Allergies (12/23/24 11:28) Hydrocodone-Acet 5/325mg Tab ([place] 5/32 (12/23/24 11:30) Hydromorphone Injection (Dilaudid Inject (12/23/24 11:) Ondansetron Hcl (Zofran) (12/23/24 11:30) Enoxaparin Sodium (Lovenox) (12/24/24 10:00) Complete Blood Count (12/24/24 05:00) Complete Blood Count (12/25/24 05:00) Complete Blood Count (12/26/24 05:00) Complete Blood Count (12/27/24 05:00) Complete Blood Count (12/28/24 05:00) Comprehensive Metabolic Panel (12/24/24 05:00) Comprehensive Metabolic Panel (12/25/24 05:00) Comprehensive Metabolic Panel (12/26/24 05:00) Comprehensive Metabolic Panel (12/27/24 05:00) Comprehensive Metabolic Panel (12/28/24 05:00) Carbohydrate Antigen 19-9 (12/23/24 ) Vital Signs Date Time Temp Pulse Resp B/P (MAP) Pulse Ox O2 Delivery O2 Flow Rate FiO2 12/23/24 09:26 70 18 143/83 12/23/24 08:55 76 20 143/85 12/23/24 08:11 89 20 98 Room Air 12/23/24 08:11 97.3 78 20 136/89 (105) 98 97.3 12/23/24 05:15 97.0 101 50 160/105 97 97.0 Laboratory Tests Test 12/23/24 07:03 White Blood Count 9.9 10^3/uL (4.4-10.8) Medications Medications Dose Ordered Sig/Mayra Route Start Time Stop Time Status Last Admin Dose Admin Acetaminophen/ Hydrocodone Bitart 1 tab Q4HP PRN PO 12/23/24 11:30 12/23/24 12:03 Artificial Tears 1 drop ONCE ONCE EACHEYE 12/23/24 08:45 12/23/24 08:46 DC 12/23/24 08:52 Diagnostic Test (Pha) 1 strip ACHS 12/23/24 11:30 12/23/24 12:00 Morphine Sulfate 4 mg ONCE ONCE IV 12/23/24 07:00 12/23/24 07:01 DC 12/23/24 08:55 Ondansetron HCl 4 mg ONCE ONCE IV 12/23/24 07:00 12/23/24 07:01 DC 12/23/24 08:52 Sodium Chloride 10 ml Q8HR IV 12/23/24 14:00 12/23/24 12:00 Sodium Chloride 1,000 ml @ 1,000 mls/hr Q1H ONCE IV 12/23/24 07:00 12/23/24 07:59 DC 12/23/24 08:55 Results Labs Test 12/23/24 08:24 12/23/24 07:03 Range/Units Urine Color Yellow Yellow Urine Clarity Clear Clear Urine pH 5.5 5.0-9.0 Urine Specific [place] 1.030 1.001-1.035 Urine Protein Negative Negative Urine Ketones Negative Negative Urine Blood Trace H Negative /uL Urine Nitrite Negative Negative Urine Bilirubin Negative Negative Urine Urobilinogen Normal Negative mg/dL Urine Leukocyte Esterase Negative Negative /uL Urine RBC 9 0 - 3 /hpf Urine Microscopic WBC 3 0-3 /HPF Urine Squamous Epithelial Cells Few <5 /hpf Urine Calcium Oxalate Crystals Few None Seen Urine Bacteria Few H None Seen /hpf Urine Glucose Normal Normal mg/dL White Blood Count 9.9 4.4-10.8 10^3/uL Red Blood Count 4.48 L 4.5-5.90 10^6/uL Hemoglobin 14.2 13.5-17.5 g/dL Hematocrit 41.0 41.0-53.0 % Mean Corpuscular Volume 91.7 80.0-100.0 fL Mean Corpuscular Hemoglobin 31.7 28.0-32.0 pg Mean Corpuscular Hemoglobin Concent 34.6 32.0-36.0 g/dL Red Cell Distribution Width 13.9 11.8-14.3 % Platelet Count 280 140-450 10^3/uL Mean Platelet Volume 7.0 6.9-10.8 fL Neutrophils (%) (Auto) 62.5 37.0-80.0 % Lymphocytes (%) (Auto) 27.1 10.0-50.0 % Monocytes (%) (Auto) 8.8 0.0-12.0 % Eosinophils (%) (Auto) 0.9 0.0-7.0 % Basophils (%) (Auto) 0.7 0.0-2.0 % Neutrophils # (Auto) 6.2 1.6-8.6 10 ^3/uL Lymphocytes # (Auto) 2.7 0.4-5.4 10 ^3/uL Monocytes # (Auto) 0.9 0-1.3 10 ^3/uL Eosinophils # (Auto) 0.1 0-0.8 10 ^3/uL Basophils # (Auto) 0.1 0-0.2 10 ^3/uL Nucleated Red Blood Cells 0.1 % Sodium Level 142 136-145 mmol/L Potassium Level 3.6 3.5-5.1 mmol/L Chloride Level 101 98-107 mmol/L Carbon Dioxide Level 32 H 20-31 mmol/L Anion Gap 9 5-15 Blood Urea Nitrogen 13 9-23 mg/dL Creatinine 1.06 0.700-1.30 mg/dL Glomerular Filtration Rate Calc 78 >90 mL/min BUN/Creatinine Ratio 12.3 10.0-20.0 Serum Glucose 89 74-106 mg/dL Calcium Level 9.8 8.7-10.4 mg/dL Primary Diagnosis Bilateral renal calculus Pancreatic head lesion Plan IV fluids at 150 cc an hour Tamsulosin q.day Ketoralac Tylenol Dilaudid [place] MRI abdomen and pelvis with IV contrast and without to assess for pancreatic head lesion Monitoring urine output Urology consult Full code Lovenox DVT prophylaxis No GI prophylaxis needed Regular diet Plan discussed with: Patient Date of Service: Dec 23, 2024 Billing Provider: ELLIOTT NEGRON MD Common Visit Codes: [id number] INP/OBS CARE (HIGH) ELLIOTT NEGRON MD Dec 23, 2024 11:28
[2024-12-23] MEDS ORDERED: ACETAMINOPHEN 325 MG TAB PO PRN (11:30)
[2024-12-23] MEDS ORDERED: ONDANSETRON HCL 4 MG/2 ML VIAL IV PRN (11:30)
[2024-12-23] MEDS ORDERED: POLYETHYLENE GLYCOL 17 GM PWDR PO PRN (11:30)
[2024-12-23] MEDS ORDERED: DEXTROSE (50%) 50ML SYRG IV PRN (11:30)
[2024-12-23] MEDS: InsuLIN REG 1unit/0.01ml Soln (100units/ml) SC SCH (11:30)
[2024-12-23] MEDS: ACCU-CHEK COMFORT CURVE STRIP VI SCH (12:00)
[2024-12-23] MEDS: SODIUM CHLOR 0.9% PF (SALINE LOCK) 10ML VIAL/SYR IV SCH (12:00)
[2024-12-23] MEDS: HYDROcodone-ACET 5/325MG TAB PO PRN (12:03)
[2024-12-23 12:05] LABS: Urine Protein, UAD Negative (Negative)
[2024-12-23 13:17] VITALS: BP 154/92; PULSE 71; RESP 16; TEMP 98.2; O2SAT 98
[2024-12-23] MEDS: HYDROmorphone HCL 2 MG/ML VL/or syr IV PRN (13:28)
[2024-12-23 17:00] VITALS: BP 164/96; PULSE 79; RESP 16; TEMP 98.1; O2SAT 97
[2024-12-23] MEDS: KETOROLAC TROMETH 30 MG/ML 1ML VIAL IV PRN (17:01)
[2024-12-23] MEDS: TAMSULOSIN HYDROCHLORIDE 0.4 MG CAP PO SCH (18:23)
[2024-12-23] MEDS ORDERED: ATEN-60 PO (19:26)
[2024-12-23] MEDS ORDERED: PERCOT PO (19:26)
[2024-12-23 20:00] VITALS: BP 131/71; PULSE 68; RESP 18; TEMP 98.1; O2SAT 96
[2024-12-23] MEDS: DOCUSATE SOD 100 MG CAP PO PRN (20:00)
[2024-12-23] MEDS: FAMOTIDINE 20 MG TAB PO SCH (21:33)
[2024-12-24] VITALS (9 sets, daily range): BP systolic 132–150; BP diastolic 72–87; PULSE 7–80; RESP 14–19; TEMP 97.6–98.2; O2SAT 95–98
[2024-12-24 09:09] LABS: Hematocrit 40.3 % (41.0-53.0); Hemoglobin 13.9 g/dL (13.5-17.5); Mean Corpuscular Hemoglobin 31.9 pg (28.0-32.0); Mean Corpuscular Volume 92.3 fL (80.0-100.0); Nucleated Red Blood Cells % 0.0 %
[2024-12-24 09:29] LABS: Alanine Aminotransferase 27 U/L (7-40); Albumin 3.8 g/dL (3.2-4.8); Alkaline Phosphatase 71 U/L (46-116); Anion Gap 8 (5-15); BUN/Creatinine Ratio 13.9 (10.0-20.0); Bilirubin, Total 0.8 mg/dL (0.2-1.0); Blood Urea Nitrogen 10 mg/dL (9-23); Calcium 9.1 mg/dL (8.7-10.4); Carbon Dioxide 29 mmol/L (20-31); Chloride 104 mmol/L (98-107); Glucose 99 mg/dL (74-106); Potassium 4.3 mmol/L (3.5-5.1); Sodium 141 mmol/L (136-145); Total Protein 5.8 g/dL (5.7-8.2)
[2024-12-24] MEDS: EMPAGLIFLOZIN 10 MG TAB PO SCH (09:31)
[2024-12-24] MEDS: ENOXAPARIN SOD 40 MG/0.4 ML SYRINGE SC SCH (09:31)
[2024-12-24] MEDS: ALLOPURINOL 100 MG TAB PO SCH (09:31)
--- NOTE | 2024-12-24 13:37 | DVH ---
EXAM DESCRIPTION: TESTICULAR ULTRASOUND WITH DOPPLER CLINICAL HISTORY: R/O hernia COMPARISON: None FINDINGS: The right testis measures 4.7 X 2.9 X 4.0 cm and demonstrates normal echotexture. And normal Doppler flow. The left testis measures 5.1 X 3.1 X 3.5 cm and demonstrates normal echotexture. And normal Doppler flow. The right epididymis demonstrates normal echogenicity and Doppler flow. The left epididymis demonstrates normal echogenicity and Doppler flow. Hydrocele: Moderate right hydrocele with debris. Trace left hydrocele. Varicocele: No varicocele noted. Adjacent to the right testicle there is a 4.3 X 5.9 X 7.4 cm cystic lesion with debris IMPRESSION: 1. A 4.3 x 5.9 x 7.4 cm complex cyst adjacent to the right testicle. 2. Moderate complex right hydrocele.
--- NOTE | 2024-12-24 16:16 | DVHINCON2 ---
Date of service: Dec 24, [address] Olson Reason for Consultation Possible pancreatic lesion History of Present Illness This 64-year-old male came to the emergency room with complaints of severe back pain. An abdominal pain patient has history of spinal stenosis patient has been having increasing discomfort from the spine problems Has also got abdominal pain and testicular swelling for which he is getting an ultrasound done Denies history of any pancreatitis or other unusual pathology but CT scan showed possible 2 cm lesion in the head of the pancreas hypodense and hence the reason for GI Denies history of moderate heavy alcohol abuse in the last few years never had any pancreatitis or ulcers or other pathology Past Medical History Severe spinal stenosis Past Surgical History None Family History: FH: lung cancer G8 MOTHER G8 FATHER Family History Noncontributory Social History Denies smoking cigarettes but smokes marijuana but history of heavy drinking Allergies: Coded Allergies: NO KNOWN ALLERGIES (Unverified , 12/15/23) Home Meds Active Scripts Famotidine (Pepcid AC) 20 Mg Tab, 20 MG PO BID for 30 Days, #60 TAB Prov:GALINDO JOE MD 12/18/23 Colchicine (Colchicine) 0.6 Mg Cap, 0.6 MG PO DAILY for 30 Days, #30 CAP Prov:GALINDO JOE MD 12/18/23 Reported Medications Oxycodone W/ Acetaminophen (Percocet 5/325MG) 1 Tab Tb, 1 TAB PO TID, #90 TAB 12/23/24 Atenolol (Atenolol) 25 Mg Tab, 25 MG PO DAILY for 30 Days, MG 12/23/24 Allopurinol (Allopurinol) 300 Mg Tab, 1 TAB PO DAILY 12/15/23 Amitriptyline HCl (Amitriptyline Hydrochlori) 75 Mg Tab, 1 TAB PO 12/15/23 Empagliflozin (Jardiance) 25 Mg Tab, 1 TAB PO DAILY 12/15/23 Semaglutide (Rybelsus) 7 Mg Tab, 1 TAB PO DAILY 12/15/23 Discontinued Reported Medications Metformin Hydrochloride (Metformin Hcl) 500 Mg Tab, 1 TAB PO BID 12/15/23 Current Medications Current Medications Medications (Trade) Dose Ordered Sig/Mayra Route PRN Reason Start Time Stop Time Status Last Admin Tamsulosin HCl (Flomax) 0.4 mg QPM PO 12/23/24 18:00 12/23/24 18:23 Famotidine (Pepcid Tablet) 20 mg BID PO 12/23/24 22:00 12/24/24 09:31 Allopurinol (Zyloprim Tablet) 300 mg DAILY PO 12/24/24 10:00 12/24/24 09:31 Empaglifozin (Jardiance) 25 mg DAILY PO 12/24/24 10:00 Patient Own Medication 1 tab DAILY PO 12/24/24 10:00 Enoxaparin Sodium (Lovenox) 40 mg DAILY SC 12/24/24 10:00 12/24/24 09:31 Review of Systems Noncontributory Vital Signs Vital Signs Date Time Temp Pulse Resp B/P (MAP) Pulse Ox O2 Delivery O2 Flow Rate FiO2 12/24/24 13:00 97.8 75 18 132/81 (98) 98 97.8 12/24/24 08:00 Room Air* 0 21 Physical Exam Moderately built and nourished male no acute distress Vitals stable Lungs are clear Cardiovascular unremarkable Abdomen is soft no tenderness no rigidity no guarding no masses Extremities no edema no varicosities Neuro grossly intact Labs/Diagnostic Data Labs Test 12/24/24 12:35 12/24/24 08:21 12/23/24 08:24 Range/Units POC Glucose 130 H 70-106 mg/dl White Blood Count 6.5 # 4.4-10.8 10^3/uL Red Blood Count 4.37 L 4.5-5.90 10^6/uL Hemoglobin 13.9 13.5-17.5 g/dL Hematocrit 40.3 L 41.0-53.0 % Mean Corpuscular Volume 92.3 80.0-100.0 fL Mean Corpuscular Hemoglobin 31.9 28.0-32.0 pg Mean Corpuscular Hemoglobin Concent 34.5 32.0-36.0 g/dL Red Cell Distribution Width 13.7 11.8-14.3 % Platelet Count 256 140-450 10^3/uL Mean Platelet Volume 7.2 6.9-10.8 fL Neutrophils (%) (Auto) 62.8 37.0-80.0 % Lymphocytes (%) (Auto) 26.4 10.0-50.0 % Monocytes (%) (Auto) 7.6 0.0-12.0 % Eosinophils (%) (Auto) 2.4 0.0-7.0 % Basophils (%) (Auto) 0.8 0.0-2.0 % Neutrophils # (Auto) 4.1 1.6-8.6 10 ^3/uL Lymphocytes # (Auto) 1.7 0.4-5.4 10 ^3/uL Monocytes # (Auto) 0.5 0-1.3 10 ^3/uL Eosinophils # (Auto) 0.2 0-0.8 10 ^3/uL Basophils # (Auto) 0.1 0-0.2 10 ^3/uL Nucleated Red Blood Cells 0.0 % Sodium Level 141 136-145 mmol/L Potassium Level 4.3 3.5-5.1 mmol/L Chloride Level 104 98-107 mmol/L Carbon Dioxide Level 29 20-31 mmol/L Anion Gap 8 5-15 Blood Urea Nitrogen 10 9-23 mg/dL Creatinine 0.72 0.700-1.30 mg/dL Glomerular Filtration Rate Calc 102 >90 mL/min BUN/Creatinine Ratio 13.9 10.0-20.0 Serum Glucose 99 74-106 mg/dL Calcium Level 9.1 8.7-10.4 mg/dL Total Bilirubin 0.8 0.2-1.0 mg/dL Aspartate Amino Transferase (AST) 33 13-40 U/L Alanine Aminotransferase (ALT) 27 7-40 U/L Alkaline Phosphatase 71 46-116 U/L Total Protein 5.8 5.7-8.2 g/dL Albumin 3.8 3.2-4.8 g/dL Urine Color Yellow Yellow Urine Clarity Clear Clear Urine pH 5.5 5.0-9.0 Urine Specific [place] 1.030 1.001-1.035 Urine Protein Negative Negative Urine Ketones Negative Negative Urine Blood Trace H Negative /uL Urine Nitrite Negative Negative Urine Bilirubin Negative Negative Urine Urobilinogen Normal Negative mg/dL Urine Leukocyte Esterase Negative Negative /uL Urine RBC 9 0 - 3 /hpf Urine Microscopic WBC 3 0-3 /HPF Urine Squamous Epithelial Cells Few <5 /hpf Urine Calcium Oxalate Crystals Few None Seen Urine Bacteria Few H None Seen /hpf Urine Glucose Normal Normal mg/dL Assessment 64-year-old male with complaints of severe spinal stenosis and complaints of abdominal pain history of chronic drinking in the past had CAT scan done of the abdomen which showed there was a small 2 cm hypodense lesion in the head of the pancreas No history of any pancreatitis with a history of heavy drinking Physical examination is unremarkable no masses felt in the abdomen Impression possible pancreatic mass history of chronic alcoholic intake Plan/Recommendation MRI of the pancreas with MRCP We will do CEA and CA 19 .9 Depending upon the MRCP and MRI may have to be referred to a pancreatic center for possible EUS and biopsy as necessary Thank you Dr. Arroyo Plan discussed with: Patient NAVEEN ARROYO MD Dec 24, 2024 16:16
[2024-12-25] VITALS (8 sets, daily range): BP systolic 112–171; BP diastolic 57–96; PULSE 67–77; RESP 12–16; TEMP 97.6–98.2; O2SAT 95–99
[2024-12-25 07:05] LABS: Hematocrit 39.5 % (41.0-53.0); Hemoglobin 13.9 g/dL (13.5-17.5); Mean Corpuscular Hemoglobin 32.1 pg (28.0-32.0); Mean Corpuscular Volume 90.8 fL (80.0-100.0); Nucleated Red Blood Cells % 0.1 %
[2024-12-25 07:22] LABS: Alanine Aminotransferase 26 U/L (7-40); Albumin 3.9 g/dL (3.2-4.8); Alkaline Phosphatase 70 U/L (46-116); Anion Gap 9 (5-15); BUN/Creatinine Ratio 18.7 (10.0-20.0); Bilirubin, Total 0.8 mg/dL (0.2-1.0); Blood Urea Nitrogen 14 mg/dL (9-23); Calcium 9.1 mg/dL (8.7-10.4); Chloride 103 mmol/L (98-107); Glucose 93 mg/dL (74-106); Potassium 4.0 mmol/L (3.5-5.1); Sodium 143 mmol/L (136-145); Total Protein 5.9 g/dL (5.7-8.2)
[2024-12-25 07:24] LABS: Carbon Dioxide 31 mmol/L (20-31)
--- NOTE | 2024-12-25 12:18 | DVHPN2 ---
Reviewed: Care Plan, H&P, Labs, Medications, Previous Orders, Radiology Changes from previous H/P or p: No Changes Objective Vitals Vital Signs Date Time Temp Pulse Resp B/P (MAP) Pulse Ox O2 Delivery O2 Flow Rate FiO2 12/25/24 10:02 77 16 142/77 12/25/24 08:53 98.2 99 98.2 12/25/24 08:00 Room Air* 0 21 Intake/Output Intake and Output 12/25/24 07:00 Intake Total 1000 ml Balance 1000 ml Intake Oral 1000 ml # Voids 6 # Bowel Movements 2 Medications Current Medications Medications Dose Ordered Sig/Mayra Route Start Time Stop Time Status Last Admin Dose Admin Polyethylene Glycol 17 gm DAILYPRN PRN PO 12/23/24 11:30 Tamsulosin HCl 0.4 mg QPM PO 12/23/24 18:00 12/24/24 16:58 0.4 MG Famotidine 20 mg BID PO 12/23/24 22:00 12/25/24 09:57 20 MG Allopurinol 300 mg DAILY PO 12/24/24 10:00 12/25/24 09:59 300 MG Empaglifozin 25 mg DAILY PO 12/24/24 10:00 Patient Own Medication 1 tab DAILY PO 12/24/24 10:00 Diagnostic Test (Pha) 1 strip ACHS 12/23/24 11:30 12/25/24 11:27 1 STRIP Insulin Human Regular ACHS SC 12/23/24 11:30 Dextrose 50 ml UD PRN IV 12/23/24 11:30 Sodium Chloride 10 ml Q8HR IV 12/23/24 14:00 12/25/24 05:36 10 ML Docusate Sodium 100 mg BIDPRN PRN PO 12/23/24 11:30 12/23/24 20:00 100 MG Acetaminophen 650 mg Q6HP PRN PO 12/23/24 11:30 Acetaminophen/ Hydrocodone Bitart 1 tab Q4HP PRN PO 12/23/24 11:30 Hold 12/23/24 12:03 1 TAB Hydromorphone HCl 0.5 mg Q4HP PRN IV 12/23/24 11:30 12/25/24 10:02 0.5 MG Ondansetron HCl 4 mg Q4HP PRN IV 12/23/24 11:30 Enoxaparin Sodium 40 mg DAILY SC 12/24/24 10:00 12/25/24 10:00 40 MG Ketorolac Tromethamine 15 mg Q6HPRN PRN IV 12/23/24 12:15 12/28/24 12:14 12/25/24 05:45 15 MG Laboratory Results Laboratory Tests 12/25/24 05:54 Chemistry Test 12/25/24 05:54 Albumin 3.9 g/dL (3.2-4.8) Calcium Level 9.1 mg/dL (8.7-10.4) Total Protein 5.9 g/dL (5.7-8.2) LFT Test 12/25/24 05:54 Alanine Aminotransferase (ALT) 26 U/L (7-40) Alkaline Phosphatase 70 U/L (46-116) Aspartate Amino Transferase (AST) 27 U/L (13-40) Total Bilirubin 0.8 mg/dL (0.2-1.0) Urinalysis Test 12/23/24 08:24 Urine Color Yellow (Yellow) Urine Clarity Clear (Clear) Urine pH 5.5 (5.0-9.0) Urine Specific [place] 1.030 (1.001-1.035) Urine Protein Negative (Negative) Urine Ketones Negative (Negative) Urine Blood Trace /uL (Negative) H Urine Nitrite Negative (Negative) Urine Bilirubin Negative (Negative) Urine Urobilinogen Normal mg/dL (Negative) Urine Leukocyte Esterase Negative /uL (Negative) Urine RBC 9 /hpf (0 - 3) Urine Microscopic WBC 3 /HPF (0-3) Urine Squamous Epithelial Cells Few /hpf (<5) Urine Calcium Oxalate Crystals Few (None Seen) Urine Bacteria Few /hpf (None Seen) H Urine Glucose Normal mg/dL (Normal) Labs and/or images reviewed: Labs reviewed by me, Image(s) reviewed by me Assessment/Plan Assessment/Plan Late entry Bilateral renal calculus urology consult 5 cm Pancreatic head lesion GI consult for Dr. Arroyo, MRI abdomen ordered Time 40 minutes Plan discussed with: Patient My Orders Orders - KINZA WILBURN MD Procedure Category Date Status Time Testicular Ultrasound US 12/24/24 Resulted 12:23 * Urology Consult CONS 12/25/24 Transmitted 12:13 Date of Service: Dec 24, 2024 Billing Provider: KINZA WILBURN MD Common Visit Codes: [id number] INP/OBS CARE(HIGH) KINZA WILBURN MD Dec 25, 2024 12:18
--- NOTE | 2024-12-25 12:19 | DVHPN2 ---
Reviewed: Care Plan, H&P, Labs, Medications, Previous Orders, Radiology Changes from previous H/P or p: No Changes Objective Vitals Vital Signs Date Time Temp Pulse Resp B/P (MAP) Pulse Ox O2 Delivery O2 Flow Rate FiO2 12/25/24 10:02 77 16 142/77 12/25/24 08:53 98.2 99 98.2 12/25/24 08:00 Room Air* 0 21 Intake/Output Intake and Output 12/25/24 07:00 Intake Total 1000 ml Balance 1000 ml Intake Oral 1000 ml # Voids 6 # Bowel Movements 2 Medications Current Medications Medications Dose Ordered Sig/Mayra Route Start Time Stop Time Status Last Admin Dose Admin Polyethylene Glycol 17 gm DAILYPRN PRN PO 12/23/24 11:30 Tamsulosin HCl 0.4 mg QPM PO 12/23/24 18:00 12/24/24 16:58 0.4 MG Famotidine 20 mg BID PO 12/23/24 22:00 12/25/24 09:57 20 MG Allopurinol 300 mg DAILY PO 12/24/24 10:00 12/25/24 09:59 300 MG Empaglifozin 25 mg DAILY PO 12/24/24 10:00 Patient Own Medication 1 tab DAILY PO 12/24/24 10:00 Diagnostic Test (Pha) 1 strip ACHS 12/23/24 11:30 12/25/24 11:27 1 STRIP Insulin Human Regular ACHS SC 12/23/24 11:30 Dextrose 50 ml UD PRN IV 12/23/24 11:30 Sodium Chloride 10 ml Q8HR IV 12/23/24 14:00 12/25/24 05:36 10 ML Docusate Sodium 100 mg BIDPRN PRN PO 12/23/24 11:30 12/23/24 20:00 100 MG Acetaminophen 650 mg Q6HP PRN PO 12/23/24 11:30 Acetaminophen/ Hydrocodone Bitart 1 tab Q4HP PRN PO 12/23/24 11:30 Hold 12/23/24 12:03 1 TAB Hydromorphone HCl 0.5 mg Q4HP PRN IV 12/23/24 11:30 12/25/24 10:02 0.5 MG Ondansetron HCl 4 mg Q4HP PRN IV 12/23/24 11:30 Enoxaparin Sodium 40 mg DAILY SC 12/24/24 10:00 12/25/24 10:00 40 MG Ketorolac Tromethamine 15 mg Q6HPRN PRN IV 12/23/24 12:15 12/28/24 12:14 12/25/24 05:45 15 MG Laboratory Results Laboratory Tests 12/25/24 05:54 Chemistry Test 12/25/24 05:54 Albumin 3.9 g/dL (3.2-4.8) Calcium Level 9.1 mg/dL (8.7-10.4) Total Protein 5.9 g/dL (5.7-8.2) LFT Test 12/25/24 05:54 Alanine Aminotransferase (ALT) 26 U/L (7-40) Alkaline Phosphatase 70 U/L (46-116) Aspartate Amino Transferase (AST) 27 U/L (13-40) Total Bilirubin 0.8 mg/dL (0.2-1.0) Urinalysis Test 12/23/24 08:24 Urine Color Yellow (Yellow) Urine Clarity Clear (Clear) Urine pH 5.5 (5.0-9.0) Urine Specific [place] 1.030 (1.001-1.035) Urine Protein Negative (Negative) Urine Ketones Negative (Negative) Urine Blood Trace /uL (Negative) H Urine Nitrite Negative (Negative) Urine Bilirubin Negative (Negative) Urine Urobilinogen Normal mg/dL (Negative) Urine Leukocyte Esterase Negative /uL (Negative) Urine RBC 9 /hpf (0 - 3) Urine Microscopic WBC 3 /HPF (0-3) Urine Squamous Epithelial Cells Few /hpf (<5) Urine Calcium Oxalate Crystals Few (None Seen) Urine Bacteria Few /hpf (None Seen) H Urine Glucose Normal mg/dL (Normal) Labs and/or images reviewed: Labs reviewed by me, Image(s) reviewed by me Assessment/Plan Assessment/Plan Acute abdominal pain Bilateral renal calculus urology consult for 5 cm Pancreatic head lesion GI consult for Dr. Arroyo, MRI abdomen ordered 5 cm right testicular cyst: Consult for Urology Dr. Olson Time 40 minutes Plan discussed with: Patient My Orders Orders - KINZA WILBURN MD Procedure Category Date Status Time Testicular Ultrasound US 12/24/24 Resulted 12:23 * Urology Consult CONS 12/25/24 Transmitted 12:13 Date of Service: Dec 25, 2024 Billing Provider: KINZA WILBURN MD Common Visit Codes: [id number] INP/OBS CARE(HIGH) KINZA WILBURN MD Dec 25, 2024 12:19
[2024-12-25] MEDS ORDERED: GADOTERATE MEG 10 MMOL/20ml INJ (0.5MMOL/ml) IV ONE (13:18)
--- NOTE | 2024-12-25 13:30 | DVHINCON2 ---
Date of service: Dec 25, 2024 Referring Physician Bridgette Wilburn Reason for Consultation Hydrocele bilateral nonobstructing renal stones- 8 mm right, 10 mm left History of Present Illness This 64-year-old male came to the emergency room with complaints of severe back pain. An abdominal pain patient has history of spinal stenosis patient has been having increasing discomfort from the spine problems Has also got abdominal pain and testicular swelling for which he is getting an ultrasound done CT scan shows incidental 8 mm right upper pole kidney stone and a 10 mm left lower pole kidney stone. These are nonobstructing. Patient also admits to bilateral scrotal/inguinal discomfort and is noted to have a complex left spermatocele/hydrocele Past Medical History Severe spinal stenosis Family History: FH: lung cancer G8 MOTHER G8 FATHER Allergies: Coded Allergies: NO KNOWN ALLERGIES (Unverified , 12/15/23) Home Meds Active Scripts Famotidine (Pepcid AC) 20 Mg Tab, 20 MG PO BID for 30 Days, #60 TAB Prov:GALINDO JOE MD 12/18/23 Colchicine (Colchicine) 0.6 Mg Cap, 0.6 MG PO DAILY for 30 Days, #30 CAP Prov:GALINDO JOE MD 12/18/23 Reported Medications Oxycodone W/ Acetaminophen (Percocet 5/325MG) 1 Tab Tb, 1 TAB PO TID, #90 TAB 12/23/24 Atenolol (Atenolol) 25 Mg Tab, 25 MG PO DAILY for 30 Days, MG 12/23/24 Allopurinol (Allopurinol) 300 Mg Tab, 1 TAB PO DAILY 12/15/23 Amitriptyline HCl (Amitriptyline Hydrochlori) 75 Mg Tab, 1 TAB PO 12/15/23 Empagliflozin (Jardiance) 25 Mg Tab, 1 TAB PO DAILY 12/15/23 Semaglutide (Rybelsus) 7 Mg Tab, 1 TAB PO DAILY 12/15/23 Discontinued Reported Medications Metformin Hydrochloride (Metformin Hcl) 500 Mg Tab, 1 TAB PO BID 12/15/23 Vital Signs Vital Signs Date Time Temp Pulse Resp B/P (MAP) Pulse Ox O2 Delivery O2 Flow Rate FiO2 12/25/24 10:02 77 16 142/77 12/25/24 08:53 98.2 99 98.2 12/25/24 08:00 Room Air* 0 21 Physical Exam Exam Vital Signs Vital Signs Date Time Temp Pulse Resp B/P (MAP) Pulse Ox O2 Delivery O2 Flow Rate FiO2 12/24/24 13:00 97.8 75 18 132/81 (98) 98 97.8 12/24/24 08:00 Room Air* 0 21 Physical Exam Moderately built and nourished male no acute distress Vitals stable Lungs are clear Cardiovascular unremarkable Abdomen is soft no tenderness no rigidity no guarding no masses Extremities no edema no varicosities Neuro grossly intact PATIENT: MILTON CASTILLO ACCT: [id number] UNIT: [id number] : 1960 LOC: ER ROOM / BED: / AGE / SEX: 64 / M ADM STATUS: REG ER SERVICE 0651 ORDERING PHYSICIAN: YVAN PARIKH MD PROCEDURE(s): ABPLIV - CT AB PEL WITH IV CON ONLY REASON: abdominal pain ORDER NUMBER(s): [id number], ACCESSION NUMBER(s): [id number] Indication: abdominal pain Technique: CT axial images of the abdomen and pelvis are obtained with intravenous contrast. Coronal and sagittal reformats were obtained. Radiation Dose Information: CTDI volume is 10.68 mGy. Dose-length product is 549.22 mGy*cm Comparison: None FINDINGS: Lung bases demonstrate atelectasis. Adrenal glands, spleen unremarkable. Pancreatic head hypodense lesion measuring 2 cm.. No enhancing hepatic lesion. No CT evidence for cholelithiasis. Nonobstructing right renal calculi up to 8 mm. Nonobstructing left renal calculi up to 10 mm. Stomach is partially distended. Small bowel loops are normal in caliber. Moderate volume stool within the colon most pronounced within the cecum and ascending colon. No secondary signs for appendicitis. Abdominal aorta normal in caliber. Atherosclerotic disease. Bladder distended. No free pelvic fluid. No inguinal lymphadenopathy. [id number] bilateral sacroiliac degenerative joint disease. Moderate to advanced lumbar degenerative disc disease most pronounced at L2-3. IMPRESSION: Nonobstructing bilateral renal calculi measuring up to 8 mm on the right and 10 mm on the left. Moderate volume stool in the colon most pronounced within the cecum and ascending colon. Pancreatic head hypodense lesion measuring 2 cm,. Recommend MRI abdomen with and without contrast to further evaluate for cysts, cystic neoplasm, pseudocyst and other etiologies. Atherosclerotic disease. Other findings as described. ATED BY: ROMMEL BHATT MD DICTATED DATE/TIME: 12/23/24858 SIGNED BY: ROMMEL BHATT MD SIGNED DATE/TIME: 12/23/24858 CC: Labs/Diagnostic Data Labs Test 12/25/24 10:56 12/25/24 05:54 12/24/24 08:21 12/23/24 08:24 Range/Units POC Glucose 88 70-106 mg/dl White Blood Count 6.6 4.4-10.8 10^3/uL Red Blood Count 4.35 L 4.5-5.90 10^6/uL Hemoglobin 13.9 13.5-17.5 g/dL Hematocrit 39.5 L 41.0-53.0 % Mean Corpuscular Volume 90.8 80.0-100.0 fL Mean Corpuscular Hemoglobin 32.1 H 28.0-32.0 pg Mean Corpuscular Hemoglobin Concent 35.3 32.0-36.0 g/dL Red Cell Distribution Width 13.8 11.8-14.3 % Platelet Count 255 140-450 10^3/uL Mean Platelet Volume 7.3 6.9-10.8 fL Neutrophils (%) (Auto) 61.2 37.0-80.0 % Lymphocytes (%) (Auto) 27.8 10.0-50.0 % Monocytes (%) (Auto) 7.7 0.0-12.0 % Eosinophils (%) (Auto) 2.0 0.0-7.0 % Basophils (%) (Auto) 1.3 0.0-2.0 % Neutrophils # (Auto) 4.0 1.6-8.6 10 ^3/uL Lymphocytes # (Auto) 1.8 0.4-5.4 10 ^3/uL Monocytes # (Auto) 0.5 0-1.3 10 ^3/uL Eosinophils # (Auto) 0.1 0-0.8 10 ^3/uL Basophils # (Auto) 0.1 0-0.2 10 ^3/uL Nucleated Red Blood Cells 0.1 % Sodium Level 143 136-145 mmol/L Potassium Level 4.0 3.5-5.1 mmol/L Chloride Level 103 98-107 mmol/L Carbon Dioxide Level 31 20-31 mmol/L Anion Gap 9 5-15 Blood Urea Nitrogen 14 9-23 mg/dL Creatinine 0.75 0.700-1.30 mg/dL Glomerular Filtration Rate Calc 101 >90 mL/min BUN/Creatinine Ratio 18.7 10.0-20.0 Serum Glucose 93 74-106 mg/dL Calcium Level 9.1 8.7-10.4 mg/dL Total Bilirubin 0.8 0.2-1.0 mg/dL Aspartate Amino Transferase (AST) 27 13-40 U/L Alanine Aminotransferase (ALT) 26 7-40 U/L Alkaline Phosphatase 70 46-116 U/L Total Protein 5.9 5.7-8.2 g/dL Albumin 3.9 3.2-4.8 g/dL Carcinoembryonic Antigen 1.45 <=5.0 ng/mL Urine Color Yellow Yellow Urine Clarity Clear Clear Urine pH 5.5 5.0-9.0 Urine Specific [place] 1.030 1.001-1.035 Urine Protein Negative Negative Urine Ketones Negative Negative Urine Blood Trace H Negative /uL Urine Nitrite Negative Negative Urine Bilirubin Negative Negative Urine Urobilinogen Normal Negative mg/dL Urine Leukocyte Esterase Negative Negative /uL Urine RBC 9 0 - 3 /hpf Urine Microscopic WBC 3 0-3 /HPF Urine Squamous Epithelial Cells Few <5 /hpf Urine Calcium Oxalate Crystals Few None Seen Urine Bacteria Few H None Seen /hpf Urine Glucose Normal Normal mg/dL PATIENT: MILTON CASTILLO ACCT: [id number] UNIT: [id number] : 1960 LOC: [facility] ROOM / BED: [address] [place] [address] AGE / SEX: 64 / M ADM STATUS: ADM IN SERVICE 1223 ORDERING PHYSICIAN: KINZA WILBURN MD PROCEDURE(s): TESUS - TESTICULAR ULTRASOUND REASON: R/O hernia ORDER NUMBER(s): [id number], ACCESSION NUMBER(s): [id number] EXAM DESCRIPTION: TESTICULAR ULTRASOUND WITH DOPPLER CLINICAL HISTORY: R/O hernia COMPARISON: None FINDINGS: The right testis measures 4.7 X 2.9 X 4.0 cm and demonstrates normal echotexture. And normal Doppler flow. The left testis measures 5.1 X 3.1 X 3.5 cm and demonstrates normal echotexture. And normal Doppler flow. The right epididymis demonstrates normal echogenicity and Doppler flow. The left epididymis demonstrates normal echogenicity and Doppler flow. Hydrocele: Moderate right hydrocele with debris. Trace left hydrocele. Varicocele: No varicocele noted. Adjacent to the right testicle there is a 4.3 X 5.9 X 7.4 cm cystic lesion with debris IMPRESSION: 1. A 4.3 x 5.9 x 7.4 cm complex cyst adjacent to the right testicle. 2. Moderate complex right hydrocele. ATED BY: GERARDO MAHONEY MD DICTATED DATE/TIME: 12/24/241334 SIGNED BY: GERARDO MAHONEY MD SIGNED DATE/TIME: 12/24/241334 CC: On my examination the large spermatocele is on the left side not the right Assessment Right hydrocele Large left spermatocele bilateral renal stones, nonobstructing Plan/Recommendation Left spermatocelectomy and left ESWL to be arranged as outpatient Subsequently he will need to undergo right ESWL Plan discussed with: Patient, Spouse ONEIL NEGRON MD Dec 25, 2024 13:30
--- NOTE | 2024-12-25 16:56 | DVH ---
EXAM: MRI ABDOMEN WITH CONTRAST HISTORY: PANC MASS COMPARISON: US ABDOMEN LIMITED on DOS: 12/16/23 TECHNIQUE: Multiplanar, multisequence imaging of the abdomen was performed with and without contrast. FINDINGS: [LOWER CHEST]: Small pleural effusions [LIVER]: The liver is normal in size without focal lesions. Normal liver contour. [SPLEEN]: Unremarkable. [PANCREAS]: In regards to the clinical question, round T2 hyperintense nonenhancing structure located in the pancreatic head measuring 16 x 17 mm (15- 77). No diffusion restriction. Lesion is below the level of the proximal aspect of the pancreatic duct. No suspicious internal features . Differential c onsideration for pancreatic cysts versus pseudo cysts versus intraductal papillary mucinous neoplasm. Normal pancreatic duct size. [GALLBLADDER AND DUCTS]: Gallbladder is normal in appearance. The cystic duct, right and left hepatic ducts, common hepatic duct, and common bile ducts are unremarkable. [ADRENAL GLANDS]: Unremarkable. [KIDNEYS]: Benign-appearing T2 hyperintense cysts hydronephrosis. [VISUALIZED BOWEL]: Grossly unremarkable. [VASCULATURE]: Unremarkable. [LYMPHADENOPATHY]: No evidence for lymphadenopathy. [ASCITES]: Absent. [MUSCULOSKELETAL]: Bone marrow signal is normal. [OTHER]: None IMPRESSION: 1. In regards to the clinical question, round T2 hyperintense nonenhancing structure located in the pancreatic head measuring 16 x 17 mm (15-77). 2. No diffusion restriction. Lesion is below the level of the proximal aspect of the pancreatic duct. No suspicious internal features. 3. Differential consideration for pancreatic cysts versus pseudocyst versus intraductal papillary mucinous neoplasm. 4. No suspicious lymphadenopathy. 5. Small bilateral pleural effusions.
--- NOTE | 2024-12-25 19:30 | DVHPN2 ---
Progress Note - Dictate Date Seen: Dec 25, 2024 Medical Necessity Reason Pt with a Central, PICC or Fol: No Subjective Patient is doing better mild nausea no vomiting no hematemesis Still with back pains Hemoglobin stable CEA and CA 19 9 normal Had an MRI done which showed a small lesion possible cyst although pseudocyst or early adenoma neoplasm can not be excluded vital signs Vital Sign Date Time Temp Pulse Resp B/P (MAP) Pulse Ox O2 Delivery O2 Flow Rate FiO2 12/25/24 16:52 98.0 71 16 125/81 (96) 95 98.0 12/25/24 08:00 Room Air* 0 21 Total Intake and Output 12/24/24 12/24/24 12/25/24 15:00 23:00 07:00 Intake Total 900 ml 100 ml Balance 900 ml 100 ml medications Current Medications Medications Dose Ordered Sig/Mayra Route Start Time Stop Time Status Last Admin Dose Admin Polyethylene Glycol 17 gm DAILYPRN PRN PO 12/23/24 11:30 Tamsulosin HCl 0.4 mg QPM PO 12/23/24 18:00 12/25/24 18:37 0.4 MG Famotidine 20 mg BID PO 12/23/24 22:00 12/25/24 09:57 20 MG Allopurinol 300 mg DAILY PO 12/24/24 10:00 12/25/24 09:59 300 MG Empaglifozin 25 mg DAILY PO 12/24/24 10:00 Patient Own Medication 1 tab DAILY PO 12/24/24 10:00 Diagnostic Test (Pha) 1 strip ACHS 12/23/24 11:30 12/25/24 16:53 1 STRIP Insulin Human Regular ACHS SC 12/23/24 11:30 Dextrose 50 ml UD PRN IV 12/23/24 11:30 Sodium Chloride 10 ml Q8HR IV 12/23/24 14:00 12/25/24 14:00 10 ML Docusate Sodium 100 mg BIDPRN PRN PO 12/23/24 11:30 12/23/24 20:00 100 MG Acetaminophen 650 mg Q6HP PRN PO 12/23/24 11:30 Acetaminophen/ Hydrocodone Bitart 1 tab Q4HP PRN PO 12/23/24 11:30 Hold 12/23/24 12:03 1 TAB Hydromorphone HCl 0.5 mg Q4HP PRN IV 12/23/24 11:30 12/25/24 10:02 0.5 MG Ondansetron HCl 4 mg Q4HP PRN IV 12/23/24 11:30 Enoxaparin Sodium 40 mg DAILY SC 12/24/24 10:00 12/25/24 10:00 40 MG Ketorolac Tromethamine 15 mg Q6HPRN PRN IV 12/23/24 12:15 12/28/24 12:14 12/25/24 15:35 15 MG objective Abdomen is soft mildly tender epigastrium no masses Hemoglobin stable MRI showed a mass small lesion in the pancreatic head possible small cyst or cystic lesion or adenoma Not sure this is amenable to CT-guided biopsy CEA CA 19 9 normal will ideally recommend referral to a pancreatic center for possible EUS and biopsy of the lesion with the EUS guidance if deemed necessary by the pancreatologist Could check also with the radiology to see if this lesion is amenable for CT- guided biopsy here Thank you Dr. Arroyo laboratory and microbiology Laboratory Tests 12/25/24 05:54 Test 12/25/24 05:54 Range/Units Serum Glucose 93 74-106 mg/dL Assessment/Plan 64-year-old male with complaints of severe spinal stenosis and complaints of abdominal pain history of chronic drinking in the past had CAT scan done of the abdomen which showed there was a small 2 cm hypodense lesion in the head of the pancreas No history of any pancreatitisbut with a history of heavy drinking Physical examination is unremarkable no masses felt in the abdomen MRI was small lesion in the head of the pancreas possible cyst versus pseudocyst versus small adenoma CEA and CA 19 9 are normal Recommend a EUS with the EUS guided biopsy if necessary after evaluation by pancreatitis largest in a referral center as outpatient will get IgG4 level to ensure that no autoimmune pancreatitis will we will get interventional Radiology consult to evaluate the for evaluation of the lesion with possible biopsy if amenable to biopsy by Radiology, preferably but EUS and EUS guided biopsy may be more preferable Thank you Dr. Arroyo Plan discussed with: Patient NAVEEN ARROYO MD Dec 25, 2024 19:30
[2024-12-26] VITALS (8 sets, daily range): BP systolic 134–157; BP diastolic 77–99; PULSE 64–76; RESP 14–18; TEMP 97.5–98; O2SAT 92–97
[2024-12-26 06:39] LABS: Hematocrit 39.6 % (41.0-53.0); Hemoglobin 14.0 g/dL (13.5-17.5); Mean Corpuscular Hemoglobin 32.3 pg (28.0-32.0); Mean Corpuscular Volume 91.1 fL (80.0-100.0); Nucleated Red Blood Cells % 0.1 %
[2024-12-26 06:48] LABS: Alanine Aminotransferase 23 U/L (7-40); Alkaline Phosphatase 70 U/L (46-116); Anion Gap 10 (5-15); BUN/Creatinine Ratio 18.8 (10.0-20.0); Blood Urea Nitrogen 12 mg/dL (9-23); Calcium 9.2 mg/dL (8.7-10.4); Carbon Dioxide 29 mmol/L (20-31); Chloride 102 mmol/L (98-107); Glucose 99 mg/dL (74-106); Potassium 3.7 mmol/L (3.5-5.1); Sodium 141 mmol/L (136-145); Total Protein 6.0 g/dL (5.7-8.2)
[2024-12-26 06:49] LABS: Albumin 3.9 g/dL (3.2-4.8); Bilirubin, Total 0.8 mg/dL (0.2-1.0)
--- NOTE | 2024-12-26 10:59 | DVHPN2 ---
Reviewed: Care Plan, H&P, Labs, Medications, Previous Orders, Radiology Changes from previous H/P or p: No Changes Objective Vitals Vital Signs Date Time Temp Pulse Resp B/P (MAP) Pulse Ox O2 Delivery O2 Flow Rate FiO2 12/26/24 10:32 68 18 142/83 12/26/24 09:00 97.6 92 97.6 12/25/24 20:00 Room Air* 0 21 Intake/Output Intake and Output 12/26/24 07:00 Intake Total 1680 ml Balance 1680 ml Intake Oral 1680 ml # Voids 12 # Bowel Movements 2 Medications Current Medications Medications Dose Ordered Sig/Mayra Route Start Time Stop Time Status Last Admin Dose Admin Polyethylene Glycol 17 gm DAILYPRN PRN PO 12/23/24 11:30 Tamsulosin HCl 0.4 mg QPM PO 12/23/24 18:00 12/25/24 18:37 0.4 MG Famotidine 20 mg BID PO 12/23/24 22:00 12/26/24 10:21 20 MG Allopurinol 300 mg DAILY PO 12/24/24 10:00 12/26/24 10:20 300 MG Empaglifozin 25 mg DAILY PO 12/24/24 10:00 Patient Own Medication 1 tab DAILY PO 12/24/24 10:00 Diagnostic Test (Pha) 1 strip ACHS 12/23/24 11:30 12/26/24 07:01 1 STRIP Insulin Human Regular ACHS SC 12/23/24 11:30 Dextrose 50 ml UD PRN IV 12/23/24 11:30 Sodium Chloride 10 ml Q8HR IV 12/23/24 14:00 12/26/24 05:35 10 ML Docusate Sodium 100 mg BIDPRN PRN PO 12/23/24 11:30 12/23/24 20:00 100 MG Acetaminophen 650 mg Q6HP PRN PO 12/23/24 11:30 Acetaminophen/ Hydrocodone Bitart 1 tab Q4HP PRN PO 12/23/24 11:30 Hold 12/23/24 12:03 1 TAB Hydromorphone HCl 0.5 mg Q4HP PRN IV 12/23/24 11:30 12/26/24 10:32 0.5 MG Ondansetron HCl 4 mg Q4HP PRN IV 12/23/24 11:30 Enoxaparin Sodium 40 mg DAILY SC 12/24/24 10:00 12/25/24 10:00 40 MG Ketorolac Tromethamine 15 mg Q6HPRN PRN IV 12/23/24 12:15 12/28/24 12:14 12/26/24 00:36 15 MG Laboratory Results Laboratory Tests 12/26/24 05:47 Chemistry Test 12/26/24 05:47 Albumin 3.9 g/dL (3.2-4.8) Calcium Level 9.2 mg/dL (8.7-10.4) Total Protein 6.0 g/dL (5.7-8.2) LFT Test 12/26/24 05:47 Alanine Aminotransferase (ALT) 23 U/L (7-40) Alkaline Phosphatase 70 U/L (46-116) Aspartate Amino Transferase (AST) 22 U/L (13-40) Total Bilirubin 0.8 mg/dL (0.2-1.0) Urinalysis Test 12/23/24 08:24 Urine Color Yellow (Yellow) Urine Clarity Clear (Clear) Urine pH 5.5 (5.0-9.0) Urine Specific [place] 1.030 (1.001-1.035) Urine Protein Negative (Negative) Urine Ketones Negative (Negative) Urine Blood Trace /uL (Negative) H Urine Nitrite Negative (Negative) Urine Bilirubin Negative (Negative) Urine Urobilinogen Normal mg/dL (Negative) Urine Leukocyte Esterase Negative /uL (Negative) Urine RBC 9 /hpf (0 - 3) Urine Microscopic WBC 3 /HPF (0-3) Urine Squamous Epithelial Cells Few /hpf (<5) Urine Calcium Oxalate Crystals Few (None Seen) Urine Bacteria Few /hpf (None Seen) H Urine Glucose Normal mg/dL (Normal) Labs and/or images reviewed: Labs reviewed by me, Image(s) reviewed by me Assessment/Plan Assessment/Plan Acute abdominal pain Bilateral nonobstructing renal calculus urology consult for appreciated 5 cm Pancreatic head lesion GI consult for Dr. Arroyo, MRI shows small lesion in the head of the pancreas possible cyst versus pseudocyst versus small adenoma CEA and CA 19 9 are normal; consult placed for the interventional radiologist for the biopsy Right hydrocele: Consult by Urology Dr. Olson appreciated Time 40 minutes Plan discussed with: Patient My Orders Orders - KINZA WILBURN MD Procedure Category Date Status Time * Urology Consult CONS 12/25/24 Transmitted 12:13 Date of Service: Dec 26, 2024 Billing Provider: KINZA WILBURN MD Common Visit Codes: [id number] INP/OBS CARE(HIGH) KINZA WILBURN MD Dec 26, 2024 10:59
[2024-12-26 14:14] LABS: INR 1.04 (0.9-1.15); Partial Thromboplastin Time 28.4 SEC (24.5-34.5); Prothrombin Time 11.0 sec (9.3-11.8)
[2024-12-27] VITALS (8 sets, daily range): BP systolic 138–152; BP diastolic 80–87; PULSE 64–93; RESP 14–71; TEMP 97.8–98.3; O2SAT 95–97
[2024-12-27 07:00] LABS: Hematocrit 40.0 % (41.0-53.0); Hemoglobin 14.1 g/dL (13.5-17.5); Mean Corpuscular Hemoglobin 31.9 pg (28.0-32.0); Mean Corpuscular Volume 90.5 fL (80.0-100.0); Nucleated Red Blood Cells % 0.1 %
[2024-12-27 07:20] LABS: Alanine Aminotransferase 31 U/L (7-40); Alkaline Phosphatase 76 U/L (46-116); Anion Gap 11 (5-15); BUN/Creatinine Ratio 25.8 (10.0-20.0); Blood Urea Nitrogen 17 mg/dL (9-23); Calcium 9.3 mg/dL (8.7-10.4); Carbon Dioxide 28 mmol/L (20-31); Chloride 102 mmol/L (98-107); Glucose 99 mg/dL (74-106); Potassium 3.8 mmol/L (3.5-5.1); Sodium 141 mmol/L (136-145); Total Protein 6.4 g/dL (5.7-8.2)
[2024-12-27 07:21] LABS: Albumin 4.3 g/dL (3.2-4.8); Bilirubin, Total 0.9 mg/dL (0.2-1.0)
--- NOTE | 2024-12-27 11:26 | DVHPN2 ---
Reviewed: Care Plan, H&P, Labs, Medications, Previous Orders, Radiology Changes from previous H/P or p: No Changes Objective Vitals Vital Signs Date Time Temp Pulse Resp B/P (MAP) Pulse Ox O2 Delivery O2 Flow Rate FiO2 12/27/24 09:58 71 18 143/85 12/27/24 09:00 97.8 96 97.8 12/26/24 20:00 Room Air* 0 21 Intake/Output Intake and Output 12/27/24 07:00 Intake Total 1300 ml Balance 1300 ml Intake Oral 1300 ml # Voids 9 # Bowel Movements 1 Medications Current Medications Medications Dose Ordered Sig/Mayra Route Start Time Stop Time Status Last Admin Dose Admin Polyethylene Glycol 17 gm DAILYPRN PRN PO 12/23/24 11:30 Tamsulosin HCl 0.4 mg QPM PO 12/23/24 18:00 12/26/24 19:53 0.4 MG Famotidine 20 mg BID PO 12/23/24 22:00 12/27/24 09:59 20 MG Allopurinol 300 mg DAILY PO 12/24/24 10:00 12/27/24 09:59 300 MG Empaglifozin 25 mg DAILY PO 12/24/24 10:00 12/27/24 09:59 25 MG Patient Own Medication 1 tab DAILY PO 12/24/24 10:00 Diagnostic Test (Pha) 1 strip ACHS 12/23/24 11:30 12/27/24 06:39 1 STRIP Insulin Human Regular ACHS SC 12/23/24 11:30 Dextrose 50 ml UD PRN IV 12/23/24 11:30 Sodium Chloride 10 ml Q8HR IV 12/23/24 14:00 12/27/24 06:00 10 ML Docusate Sodium 100 mg BIDPRN PRN PO 12/23/24 11:30 12/23/24 20:00 100 MG Acetaminophen 650 mg Q6HP PRN PO 12/23/24 11:30 Acetaminophen/ Hydrocodone Bitart 1 tab Q4HP PRN PO 12/23/24 11:30 Hold 12/23/24 12:03 1 TAB Hydromorphone HCl 0.5 mg Q4HP PRN IV 12/23/24 11:30 12/27/24 09:58 0.5 MG Ondansetron HCl 4 mg Q4HP PRN IV 12/23/24 11:30 Enoxaparin Sodium 40 mg DAILY SC 12/24/24 10:00 12/25/24 10:00 40 MG Ketorolac Tromethamine 15 mg Q6HPRN PRN IV 12/23/24 12:15 12/28/24 12:14 12/26/24 16:38 15 MG Laboratory Results Laboratory Tests 12/27/24 06:15 Chemistry Test 12/27/24 06:15 Albumin 4.3 g/dL (3.2-4.8) Calcium Level 9.3 mg/dL (8.7-10.4) Total Protein 6.4 g/dL (5.7-8.2) Coagulation Test 12/26/24 13:20 Prothrombin Time 11.0 sec (9.3-11.8) Prothrombin Time INR 1.04 (0.9-1.15) Activated Partial Thromboplast Time 28.4 SEC (24.5-34.5) LFT Test 12/27/24 06:15 Alanine Aminotransferase (ALT) 31 U/L (7-40) Alkaline Phosphatase 76 U/L (46-116) Aspartate Amino Transferase (AST) 24 U/L (13-40) Total Bilirubin 0.9 mg/dL (0.2-1.0) Urinalysis Test 12/23/24 08:24 Urine Color Yellow (Yellow) Urine Clarity Clear (Clear) Urine pH 5.5 (5.0-9.0) Urine Specific [place] 1.030 (1.001-1.035) Urine Protein Negative (Negative) Urine Ketones Negative (Negative) Urine Blood Trace /uL (Negative) H Urine Nitrite Negative (Negative) Urine Bilirubin Negative (Negative) Urine Urobilinogen Normal mg/dL (Negative) Urine Leukocyte Esterase Negative /uL (Negative) Urine RBC 9 /hpf (0 - 3) Urine Microscopic WBC 3 /HPF (0-3) Urine Squamous Epithelial Cells Few /hpf (<5) Urine Calcium Oxalate Crystals Few (None Seen) Urine Bacteria Few /hpf (None Seen) H Urine Glucose Normal mg/dL (Normal) Labs and/or images reviewed: Labs reviewed by me, Image(s) reviewed by me Assessment/Plan Assessment/Plan Acute abdominal pain Bilateral nonobstructing renal calculus urology consult for appreciated 5 cm Pancreatic head lesion GI consult for Dr. Arroyo, MRI shows small lesion in the head of the pancreas possible cyst versus pseudocyst versus small adenoma CEA and CA 19 9 are normal; consult placed for the interventional radiologist for the biopsy Right hydrocele: Consult by Urology Dr. Olson appreciated Time 48 minutes Plan discussed with: Patient Date of Service: Dec 27, 2024 Billing Provider: KINZA WILBURN MD Common Visit Codes: [id number] INP/OBS CARE(HIGH) KINZA WILBURN MD Dec 27, 2024 11:26
[2024-12-28 01:00] VITALS: BP 136/81; PULSE 72; RESP 14; TEMP 97; O2SAT 99
[2024-12-28 05:00] VITALS: BP 151/85; PULSE 75; RESP 14; TEMP 97.8; O2SAT 97
[2024-12-28 06:43] LABS: Hematocrit 40.9 % (41.0-53.0); Hemoglobin 14.4 g/dL (13.5-17.5); Mean Corpuscular Hemoglobin 31.9 pg (28.0-32.0); Mean Corpuscular Volume 90.8 fL (80.0-100.0); Nucleated Red Blood Cells % 0.0 %
[2024-12-28 06:48] LABS: Alanine Aminotransferase 37 U/L (7-40); Alkaline Phosphatase 84 U/L (46-116); Anion Gap 9 (5-15); BUN/Creatinine Ratio 25.7 (10.0-20.0); Blood Urea Nitrogen 18 mg/dL (9-23); Calcium 9.3 mg/dL (8.7-10.4); Carbon Dioxide 31 mmol/L (20-31); Chloride 100 mmol/L (98-107); Glucose 97 mg/dL (74-106); Potassium 4.2 mmol/L (3.5-5.1); Sodium 140 mmol/L (136-145); Total Protein 6.5 g/dL (5.7-8.2)
[2024-12-28 06:49] LABS: Albumin 4.3 g/dL (3.2-4.8); Bilirubin, Total 0.7 mg/dL (0.2-1.0)
[2024-12-28 08:00] VITALS: PULSE 74; RESP 17; O2SAT 97
[2024-12-28 09:00] VITALS: BP 150/95; PULSE 74; RESP 17; TEMP 97.8; O2SAT 97
--- NOTE | 2024-12-28 10:00 | DVHPN2 ---
Reviewed: Care Plan, H&P, Labs, Medications, Previous Orders, Radiology Changes from previous H/P or p: No Changes Objective Vitals Vital Signs Date Time Temp Pulse Resp B/P (MAP) Pulse Ox O2 Delivery O2 Flow Rate FiO2 12/28/24 09:50 74 18 150/95 12/28/24 05:00 97.8 97 97.8 12/27/24 20:00 Room Air* 0 21 Intake/Output Intake and Output 12/28/24 07:00 Intake Total 1500 ml Balance 1500 ml Intake Oral 1500 ml # Voids 10 # Bowel Movements 2 Medications Current Medications Medications Dose Ordered Sig/Mayra Route Start Time Stop Time Status Last Admin Dose Admin Polyethylene Glycol 17 gm DAILYPRN PRN PO 12/23/24 11:30 Tamsulosin HCl 0.4 mg QPM PO 12/23/24 18:00 12/27/24 19:49 0.4 MG Famotidine 20 mg BID PO 12/23/24 22:00 12/28/24 09:37 20 MG Allopurinol 300 mg DAILY PO 12/24/24 10:00 12/28/24 09:37 300 MG Empaglifozin 25 mg DAILY PO 12/24/24 10:00 12/27/24 09:59 25 MG Patient Own Medication 1 tab DAILY PO 12/24/24 10:00 Diagnostic Test (Pha) 1 strip ACHS 12/23/24 11:30 12/28/24 06:59 1 STRIP Insulin Human Regular ACHS SC 12/23/24 11:30 Dextrose 50 ml UD PRN IV 12/23/24 11:30 Sodium Chloride 10 ml Q8HR IV 12/23/24 14:00 12/28/24 06:00 10 ML Docusate Sodium 100 mg BIDPRN PRN PO 12/23/24 11:30 12/23/24 20:00 100 MG Acetaminophen 650 mg Q6HP PRN PO 12/23/24 11:30 Acetaminophen/ Hydrocodone Bitart 1 tab Q4HP PRN PO 12/23/24 11:30 Hold 12/23/24 12:03 1 TAB Hydromorphone HCl 0.5 mg Q4HP PRN IV 12/23/24 11:30 12/28/24 09:50 0.5 MG Ondansetron HCl 4 mg Q4HP PRN IV 12/23/24 11:30 Enoxaparin Sodium 40 mg DAILY SC 12/24/24 10:00 12/25/24 10:00 40 MG Ketorolac Tromethamine 15 mg Q6HPRN PRN IV 12/23/24 12:15 12/28/24 12:14 12/26/24 16:38 15 MG Laboratory Results Laboratory Tests 12/28/24 05:23 Chemistry Test 12/28/24 05:23 Albumin 4.3 g/dL (3.2-4.8) Calcium Level 9.3 mg/dL (8.7-10.4) Total Protein 6.5 g/dL (5.7-8.2) LFT Test 12/28/24 05:23 Alanine Aminotransferase (ALT) 37 U/L (7-40) Alkaline Phosphatase 84 U/L (46-116) Aspartate Amino Transferase (AST) 28 U/L (13-40) Total Bilirubin 0.7 mg/dL (0.2-1.0) Urinalysis Test 12/23/24 08:24 Urine Color Yellow (Yellow) Urine Clarity Clear (Clear) Urine pH 5.5 (5.0-9.0) Urine Specific [place] 1.030 (1.001-1.035) Urine Protein Negative (Negative) Urine Ketones Negative (Negative) Urine Blood Trace /uL (Negative) H Urine Nitrite Negative (Negative) Urine Bilirubin Negative (Negative) Urine Urobilinogen Normal mg/dL (Negative) Urine Leukocyte Esterase Negative /uL (Negative) Urine RBC 9 /hpf (0 - 3) Urine Microscopic WBC 3 /HPF (0-3) Urine Squamous Epithelial Cells Few /hpf (<5) Urine Calcium Oxalate Crystals Few (None Seen) Urine Bacteria Few /hpf (None Seen) H Urine Glucose Normal mg/dL (Normal) Assessment/Plan Assessment/Plan Acute abdominal pain Bilateral nonobstructing renal calculus urology consult for appreciated 5 cm Pancreatic head lesion GI consult for Dr. Arroyo, MRI shows small lesion in the head of the pancreas possible cyst versus pseudocyst versus small adenoma CEA and CA 19 9 are normal; consult placed for the interventional radiologist for the biopsy. But the biopsy was not done as the radiologist felt the lesion is inaccessible and advised repeat MRI in one month to see if it is growing, patient was advised accordingly Time 48 minutes Plan discussed with: Patient My Orders Orders - KINZA WILBURN MD Procedure Category Date Status Time Cardiac DIET 12/27/24 Transmitted Diet-2gna,Lofat,Lochol Lunch Date of Service: Dec 28, 2024 Billing Provider: KINZA WILBURN MD Common Visit Codes: [id number] INP/OBS CARE(HIGH) KINZA WILBURN MD Dec 28, 2024 10:00
--- NOTE | 2024-12-28 10:06 | DVHDS2 ---
Discharge Summary Date of Admission Dec 23, 2024 at 11:28 Date of Discharge: Dec 28, 2024 Admitting Diagnosis Abdominal pain right scrotal pain Wounds: None Labs/Diagnostic Data: Laboratory Results Test 12/28/24 06:17 12/28/24 05:23 12/26/24 13:20 12/24/24 08:21 POC Glucose 99 mg/dl (70-106) White Blood Count 8.1 10^3/uL (4.4-10.8) Red Blood Count 4.51 10^6/uL (4.5-5.90) Hemoglobin 14.4 g/dL (13.5-17.5) Hematocrit 40.9 % (41.0-53.0) Mean Corpuscular Volume 90.8 fL (80.0-100.0) Mean Corpuscular Hemoglobin 31.9 pg (28.0-32.0) Mean Corpuscular Hemoglobin Concent 35.2 g/dL (32.0-36.0) Red Cell Distribution Width 13.9 % (11.8-14.3) Platelet Count 267 10^3/uL (140-450) Mean Platelet Volume 7.4 fL (6.9-10.8) Neutrophils (%) (Auto) 64.9 % (37.0-80.0) Lymphocytes (%) (Auto) 24.1 % (10.0-50.0) Monocytes (%) (Auto) 8.9 % (0.0-12.0) Eosinophils (%) (Auto) 1.6 % (0.0-7.0) Basophils (%) (Auto) 0.5 % (0.0-2.0) Neutrophils # (Auto) 5.2 10 ^3/uL (1.6-8.6) Lymphocytes # (Auto) 1.9 10 ^3/uL (0.4-5.4) Monocytes # (Auto) 0.7 10 ^3/uL (0-1.3) Eosinophils # (Auto) 0.1 10 ^3/uL (0-0.8) Basophils # (Auto) 0 10 ^3/uL (0-0.2) Nucleated Red Blood Cells 0.0 % Sodium Level 140 mmol/L (136-145) Potassium Level 4.2 mmol/L (3.5-5.1) Chloride Level 100 mmol/L (98-107) Carbon Dioxide Level 31 mmol/L (20-31) Anion Gap 9 (5-15) Blood Urea Nitrogen 18 mg/dL (9-23) Creatinine 0.70 mg/dL (0.700-1.30) Glomerular Filtration Rate Calc 103 mL/min (>90) BUN/Creatinine Ratio 25.7 (10.0-20.0) Serum Glucose 97 mg/dL (74-106) Calcium Level 9.3 mg/dL (8.7-10.4) Total Bilirubin 0.7 mg/dL (0.2-1.0) Aspartate Amino Transferase (AST) 28 U/L (13-40) Alanine Aminotransferase (ALT) 37 U/L (7-40) Alkaline Phosphatase 84 U/L (46-116) Total Protein 6.5 g/dL (5.7-8.2) Albumin 4.3 g/dL (3.2-4.8) Prothrombin Time 11.0 sec (9.3-11.8) Prothrombin Time INR 1.04 (0.9-1.15) Activated Partial Thromboplast Time 28.4 SEC (24.5-34.5) Carcinoembryonic Antigen 1.45 ng/mL (<=5.0) CA 19-9 Antigen 17 U/mL (0-35) Test 12/23/24 08:24 Urine Color Yellow (Yellow) Urine Clarity Clear (Clear) Urine pH 5.5 (5.0-9.0) Urine Specific [place] 1.030 (1.001-1.035) Urine Protein Negative (Negative) Urine Ketones Negative (Negative) Urine Blood Trace /uL (Negative) Urine Nitrite Negative (Negative) Urine Bilirubin Negative (Negative) Urine Urobilinogen Normal mg/dL (Negative) Urine Leukocyte Esterase Negative /uL (Negative) Urine RBC 9 /hpf (0 - 3) Urine Microscopic WBC 3 /HPF (0-3) Urine Squamous Epithelial Cells Few /hpf (<5) Urine Calcium Oxalate Crystals Few (None Seen) Urine Bacteria Few /hpf (None Seen) Urine Glucose Normal mg/dL (Normal) Other Laboratory Tests 12/28/24 05:23 Brief Hx & Hospital Course: 64-year-old male came in complaining of abdominal pain found to have bilateral nonobstructing renal calculi and urology Dr. Ruffin advised outpatient follow up he also complained of right-sided scrotal swelling found to have hydrocele Dr. Olson advised outpatient follow up CT abdomen pelvis without contrast showed 5 cm pancreatic head lesion GI consult by Dr. Arroyo ordered MRI which showed the lesion in the pancreas has a possiblecyst. Radiology consult was placed biopsies lesion in the radiologist felt it is inaccessible and advised to wait for a month and repeat MRI to CBD growing. Patient was advised accordingly. The patient made an appointment with the GI Dr. Schwarz as per the recommendation his O insurance. At the time of discharge patient is symptom-free and being discharged home He will follow up with the GI Dr. Schwarz and urology Consults/Reason for consult GI Dr. Arroyo Radiologist Urology Operations or Procedures MRI of the abdomen CT abdomen pelvis without contrast Right scrotal ultrasound Condition at Discharge: Fair Final Diagnosis/Problems List Acute abdominal pain Bilateral nonobstructing renal calculus urology consult for appreciated 5 cm Pancreatic head lesion GI consult for Dr. Arroyo, MRI shows small lesion in the head of the pancreas possible cyst versus pseudocyst versus small adenoma CEA and CA 19 9 are normal; consult placed for the interventional radiologist for the biopsy. But the biopsy was not done as the radiologist felt the lesion is inaccessible and advised repeat MRI in one month to see if it is growing, patient was advised accordingly Time 48 minutes Discharge Disposition: Home Discharge Instruct/Medications Diet: Regular Activity: Light activity Follow Up/Referral: Follow up with the Urology Dr. Olson regarding right hydrocele and bilateral kidney stones Keep your appointment which you have made with your GI Dr. Schwarz Medications: none Scheduled Allopurinol (Allopurinol), 1 TAB PO DAILY, (Reported) Atenolol (Atenolol), 25 MG PO DAILY, (Reported) Colchicine (Colchicine), 0.6 MG PO DAILY Empagliflozin (Jardiance), 1 TAB PO DAILY, (Reported) Famotidine (Pepcid AC), 20 MG PO BID Oxycodone W/ Acetaminophen (Percocet 5/325MG), 1 TAB PO TID, (Reported) Semaglutide (Rybelsus), 1 TAB PO DAILY, (Reported) Miscellaneous Medications Amitriptyline HCl (Amitriptyline Hydrochlori), 1 TAB PO, (Reported) Discontinued Medications Metformin Hydrochloride (Metformin Hcl), 1 TAB PO BID, (Reported) 39 (Time taken for discharge summary 39 minutes) Discharge Statement: "Patient was advised to return to the ER or call 911 if any headaches, dizziness, shortness of breath, chest pain, abdominal pain, bleeding, fevers, or worsening of medical condition. Patient was counseled about treatment plan, medications, possible side effects, patientverbalized understanding. All questions were answered to the best of my ability. This discharge took greater then 30 minutes in planning, reviewing documentation, counseling the patient, and discussing with other team members." ASSESSMENT ASSESSMENT Hospital Course Improved Assessment Acute abdominal pain Bilateral nonobstructing renal calculus urology consult for appreciated 5 cm Pancreatic head lesion GI consult for Dr. Arroyo, MRI shows small lesion in the head of the pancreas possible cyst versus pseudocyst versus small adenoma CEA and CA 19 9 are normal; consult placed for the interventional radiologist for the biopsy. But the biopsy was not done as the radiologist felt the lesion is inaccessible and advised repeat MRI in one month to see if it is growing, patient was advised accordingly Time 48 minutes Date of Service: Dec 28, 2024 Billing Provider: KINZA WILBURN MD Common Visit Codes: [id number] DISCH DAY >30min KINZA WILBURN MD Dec 28, 2024 10:06
[2024-12-28 12:49] VITALS: BP 150/95; PULSE 74; RESP 18; TEMP 97.8; O2SAT 97
[2024-12-28 15:00] VITALS: BP 152/85; PULSE 75; RESP 18
== END 2024-12-28 17:00 | disposition home or self-care (01) | DRG 694 ==
LOC: ER 05:14 → OVERFLOW 11:28 → EAST 22:43
PROVIDERS: ADMIT Family Medicine; ATTEND Family Medicine
DX: N20.0 Calculus of kidney (principal); K86.2 Cyst of pancreas; N43.3 Hydrocele, unspecified; N43.41 Spermatocele of epididymis, single; Z79.84 Long term (current) use of oral hypoglycemic drugs; Z79.899 Other long term (current) drug therapy; Z80.1 Family history of malignant neoplasm of trachea, bronchus and lung
CPT/HCPCS: 36415; 74177; 74181; 76870; 80048; 80053; 81001; 82378; 82962; 85025; 85610; 85730; 86301; 96374; 99291; G0378; J1885; J2405